=== PATIENT | male | born 1975 | race African-American/Black ===

== ENCOUNTER 2017-11-08 17:43 | Inpatient (IN) | payer MEDICAID, SELFPAY ==
[2017-11-08 18:33] LABS: #Eosinphils 0.1 thou/uL (0.0-0.7); #Lymphocytes 2.4 thou/uL (1.20-3.40); #Monocytes 0.5 thou/uL (0.11-0.59); #Neutrophils 3.7 thou/uL (1.40-6.50); %Basophils 0.6 % (0.0-1.0); %Eosinophils 1.6 % (0.0-10.0); %Lymphocytes 35.8 % (21.0-51.0); %Monocytes 7.4 % (0.0-10.0); Hematocrit 42.6 % (42.0-52.0); Mean Platelet Volume 6.2 fL (7.4-10.4); Red Blood Cell (RBC) Count 4.62 mill/uL (4.70-6.10); White Blood Cell (WBC) Count 6.8 thou/uL (4.8-10.8)
[2017-11-08 18:57] LABS: ALT (SGPT) 11 U/L (8-55); AST (SGOT) 10 U/L (5-34); Alkaline Phosphatase 77 U/L (40-150); Anion Gap 12 mmol/L (10-20); BUN (Urea Nitrogen) 10 mg/dL (8.9-20.6); Bilirubin, Total 0.2 mg/dL (0.2-1.2); Calc. Creatinine Clearance 0 mL/min (70-130); Calcium 9.2 mg/dL (7.8-10.44); Carbon Dioxide 26 mmol/L (22-29); Chloride 100 mmol/L (98-107); Estimated GFR-MDRD 90; Protein, Total 8.3 g/dL (6.0-8.3)
[2017-11-08] MEDS ORDERED: Clindamycin/D5W 600 mg/50 ml Premix Bag ONE (19:55)
--- NOTE | 2017-11-08 20:14 | RAD ---
THREE VIEWS RIGHT FOOT: History: Infection, right great toe. FINDINGS: AP, lateral and oblique views right foot obtained. Comparison: 03-13-16 FINDINGS: There has been interval amputation of the second and third digits. There is now an area of soft tissu e swelling and gas at the PIP joint of the first digit right foot. There is subluxation of the distal and proximal phalanges of the first digit medially. There is extensive erosion and destructive wood es in the distal aspect of the first right metatarsal as well as the proximal portions of the proxima l phalanx first digit right foot. IMPRESSION: 1. Destructive and erosive changes compatible with osteomyelitis of the mid and distal first metatars al right foot. POS: SE[facility]
[2017-11-08 21:13] LABS: Lactic Acid - Sepsis 1.7 mmol/L (0.5-2.2)
[2017-11-08] MEDS ORDERED: HYDROcodone/Acetaminophen 7.5/325 mg Tablet ONE (21:13)
[2017-11-08] MEDS ORDERED: Piperacillin/Tazobactam 3.375 GM in Sodium Chloride 0.9% 100 ML IVPB SCH (21:30)
[2017-11-08] MEDS ORDERED: Morphine 4 MG/ML VIAL ONE (22:48)
[2017-11-08] MEDS ORDERED: Ondansetron ODT 4 MG TAB SL PRN (23:34)
[2017-11-08] MEDS ORDERED: Acetaminophen 325 MG TAB PO PRN (23:34)
[2017-11-09] MEDS: Lactated Ringer's 1,000 ML IV SCH ×2 (00:04→08:54)
[2017-11-09 00:29] VITALS: BMI 35.6
--- NOTE | 2017-11-09 00:34 | PDOC.EVN ---
Event Note - Event Note Event Note: 208991 H&P Dictated 1. Rt foot osteomyelitis 2. DM type 2 3. htn 4. hpl plan: see orders
[2017-11-09] MEDS ORDERED: HYDROcodone/Acetaminophen 5/325 mg Tablet PO PRN (01:09)
[2017-11-09] MEDS: Morphine 5 mg/5 ml in 0.9% NaCl/PF SYRINGE SLOW IVP PRN ×4 (01:31→18:17)
[2017-11-09] MEDS: Sodium Chloride 0.9% 1,000 ML IV SCH ×2 (01:34→13:57)
[2017-11-09] MEDS: Vancomycin HCl 1.5 GM in Sodium Chloride 0.9% 250 ML 300 ML IVPB SCH ×2 (01:46→13:57)
[2017-11-09 06:11] LABS: #Eosinphils 0.1 thou/uL (0.0-0.7); #Lymphocytes 2.6 thou/uL (1.20-3.40); #Monocytes 0.6 thou/uL (0.11-0.59); #Neutrophils 2.5 thou/uL (1.40-6.50); %Basophils 0.6 % (0.0-1.0); %Eosinophils 2.4 % (0.0-10.0); %Lymphocytes 43.9 % (21.0-51.0); %Monocytes 10.8 % (0.0-10.0); Hematocrit 37.1 % (42.0-52.0); Mean Platelet Volume 6.3 fL (7.4-10.4); Red Blood Cell (RBC) Count 4.01 mill/uL (4.70-6.10); White Blood Cell (WBC) Count 5.9 thou/uL (4.8-10.8)
[2017-11-09 06:22] LABS: Anion Gap 9 mmol/L (10-20); BUN (Urea Nitrogen) 9 mg/dL (8.9-20.6); Calc. Creatinine Clearance 194 mL/min (70-130); Calcium 8.5 mg/dL (7.8-10.44); Carbon Dioxide 28 mmol/L (22-29); Chloride 103 mmol/L (98-107); Estimated GFR-MDRD Greater than 90
[2017-11-09] MEDS: Ondansetron HCl/PF 4 MG/2 ML Vial IVP PRN (06:50)
--- NOTE | 2017-11-09 07:47 | HP ---
DATE OF ADMISSION: 11/08/2017 CHIEF COMPLAINT: Right foot swelling. HISTORY OF PRESENT ILLNESS: Patient is 42-year-old male with a past medical history of diabetes michael itus type 2, hypertension, hyperlipidemia, peripheral vascular disease, now came to the ER complainin g of right foot swelling. The patient said he started having right foot swelling and initially start ed having bunion on the right foot. Later on the bunion ruptured and that started having right foot wound and having painless drainage also. Patient started having right foot swelling and pain for the past few weeks. Today, the pain got worse. Pain is constant, sharp to burning kind of pain 10/10, worsens with movement, complains of right lower extremity swelling intermittent, then swelling gets w orse on lying down. Denies any chest pain, denies any palpations. Denies any cough, denies any sput um production, denies any fever, denies any chills, denies any nausea, denies any vomiting, denies an y diarrhea. PAST MEDICAL HISTORY: As per HPI. PAST SURGICAL HISTORY: Bilateral foot surgery. SOCIAL HISTORY: Denies smoking, denies alcohol, denies any illicit drugs. ALLERGIES: Reviewed. MEDICATIONS: Reviewed. FAMILY HISTORY: Denies any heart problems. REVIEW OF SYSTEMS: Constitutional: Denies any fever, denies any chills. Eyes: Denies any vision p roblems. Ears: Denies any hearing loss. Neck: Denies any neck pain. Cardiovascular system: Lopez es any chest pain. Denies any palpitations. Respiratory system: Denies any cough. Denies any sput um production. Gastrointestinal: Denies nausea, vomiting. Musculoskeletal: Positive for right ruby t swelling, positive for right foot drainage seen. Cranial nerve system: Denies syncope, denies lig htheadedness. Psychiatric: Denies depression or anxiety. Integument: Denies any rash. All other review of systems are reviewed and are negative. PHYSICAL EXAMINATION: CONSTITUTIONAL/VITAL SIGNS: At the time of H&P performed, temperature is 98.7, heart rate 83, respir atory rate 18, pulse ox 96%, blood pressure is 156/83. GENERAL: This patient appears comfortable. HEENT: Pupils are equal, round, and reactive. Anterior nares patent. Nose normal. Ears normal. T eeth intact. Tongue is moist. NECK: Supple, no JVD. CARDIOVASCULAR: S1, S2 present. Regular rate and rhythm. No murmurs, no rubs, no gallops. RESPIRATORY SYSTEM: No wheezing, no rhonchi. Breath sounds present bilaterally. GASTROINTESTINAL: Abdomen is soft, nontender, no guarding, no organomegaly, no masses felt. MUSCULOSKELETAL: Right lower extremity, positive for swelling present. Right foot positive for ulce r present. Right foot positive for drainage seen. PSYCHIATRIC: Mood is appropriate at this time. CRANIAL NERVES SYSTEM: Awake, follows commands. Strength intact, sensory intact. INTEGUMENTARY: Positive for right foot ulcer. LABORATORY DATA: At the time of H&P performed white count 6.8, hemoglobin 13.8, platelet count is 47 4. BMP shows sodium 134, potassium 4.2, chloride 100, CO2 of 26, BUN of 10, creatinine 1.09, glucose 299. CRP 4.71. Foot x-ray positive for destructive and erosive changes with osteomyelitis of the m id and distal first metatarsal right foot. ASSESSMENT AND PLAN: The patient is 42-year-old male, 1. Right foot osteomyelitis. Plan to start patient on broad spectrum antibiotics. Plan to keep pat ient n.p.o. Plan to consult Ortho to evaluate the patient. Plan to consult ID to evaluate the patie nt and we will monitor the patient closely. 2. Hypertension. Monitor blood pressure, continue home blood pressure treatments. 3. Diabetes, type 2. Monitor blood sugars. We will do insulin sliding scale. 4. Hypercholesterolemia. Continue home medication. 5. Pain, p.r.n. pain meds. Case was discussed in detail with the patient.
[2017-11-09] MEDS: Cefepime 2 GM, Syringe 2.5 ML in Sterile Water 10 ML SLOW IVP SCH ×2 (08:55→21:05)
[2017-11-09] MEDS: Famotidine 20 MG TAB PO SCH ×2 (08:55→21:07)
[2017-11-09] MEDS: Heparin 5,000 UNITS/ML VIAL SC SCH ×3 (09:00→21:05)
[2017-11-09] MEDS ORDERED: Cefepime 2 GM in Sodium Chloride 0.9% 100 ML IVPB SCH (09:00)
--- NOTE | 2017-11-09 09:14 | HP ---
HISTORY OF PRESENT ILLNESS: A 42-year-old black male well known to me. He has had previous amputati ons of his left and right foot. He is a heavy equipment operator apprentice. He stated he injured his right fo ot, developed neuropathic ulcer with metatarsophalangeal joint, plantar ulceration. This has progres sed to drainage and swelling. He presents to the emergency room, x-rays reveal osteomyelitis changes in the metatarsal head. He was admitted by Hospitalist Service. ALLERGIES: CODEINE. TOBACCO: None. ALCOHOL: None. MEDICATIONS: Crestor 10 mg a day, amlodipine 5 mg a day, Amaryl 4 mg t.i.d., metformin 500 mg b.i.d. , lisinopril 20/12.5 daily. PAST SURGICAL HISTORY: Last year amputations of the left and right foot, amputations of right second and third toes and metatarsals, right foot. PAST MEDICAL HISTORY: Non-insulin dependent diabetes mellitus and hypertension. REVIEW OF SYSTEMS: Ten point noncontributory. PHYSICAL EXAMINATION: VITAL SIGNS: 6 foot 1 inch, 270 pounds, 35 BMI, 98.1, 77, 147/77. HEENT: Unremarkable. LUNGS: Clear to auscultation. CARDIAC: Regular rate and rhythm without murmur or gallop. ABDOMEN: Soft, obese, nontender. EXTREMITIES: Palpable femoral, popliteal, dorsalis pedis, posterior tibial pulses bilaterally. Prev ious amputations well healed of the right second and third toes and metatarsals, right great toe with generalized edema and swelling. Plantar ulceration beneath the plantar metatarsophalangeal joint of the great toe, right. There is purulent discharge. ASSESSMENT AND PLAN: 1. Diabetic foot infection, right foot. We will plan amputation of right great toe and metatarsal. Wound left open for healing by secondary intention with wound VAC application. Patient understands the risks and benefits and consents. 2. Diabetes mellitus. 3. Hypertension. 4. Palpable pulses. No evidence of peripheral arterial disease. 5. Morbid obesity with metabolic syndrome with body mass index of 35.
[2017-11-09] MEDS ORDERED: Ondansetron HCl/PF 4 MG/2 ML Vial ONE ×2 (13:54→16:34)
[2017-11-09] MEDS ORDERED: Fentanyl 100 MCG/2 ML VIAL ONE (15:02)
--- NOTE | 2017-11-09 15:14 | PDOC.EVN ---
Event Note - Event Note Event Note: Chart reviewed. Pt seen. Plan for surgery noted, will follow.
[2017-11-09] MEDS ORDERED: Morphine Sulfate 2 MG/ML SYRINGE SLOW IVP PRN (16:10)
[2017-11-09] MEDS ORDERED: Promethazine HCl 25 MG/ML VIAL SLOW IVP PRN (16:10)
[2017-11-09] MEDS ORDERED: Ketorolac Tromethamine 30 MG/ML VIAL IVP PRN (16:10)
[2017-11-09] MEDS ORDERED: Ondansetron HCl/PF 4 MG/2 ML Vial IVP PRN (16:10)
[2017-11-09] MEDS ORDERED: Meperidine HCl/PF 25 MG/ML VIAL SLOW IVP PRN (16:10)
[2017-11-09] MEDS ORDERED: Promethazine HCl 25 MG/ML VIAL IM PRN (16:10)
[2017-11-09] MEDS ORDERED: Propofol 200 MG/20 ML VIAL ONE (16:34)
[2017-11-09] MEDS ORDERED: Dexamethasone 20 MG/5 ML VIAL ONE (16:34)
[2017-11-09] MEDS ORDERED: Lidocaine 1% PF 5 ML VIAL ONE (16:34)
[2017-11-09] MEDS ORDERED: Succinylcholine Chloride 20 MG/ML 10 ml SYRINGE FS ONE (16:34)
[2017-11-09] MEDS ORDERED: traMADol HCl 50 MG TAB PO PRN (16:53)
[2017-11-09] MEDS ORDERED: hydrALAZINE 20 MG/ML VIAL SLOW IVP PRN (17:19)
[2017-11-09] MEDS ORDERED: HumaLOG 300 UNITS/3 ML VIAL SC PRN (17:20)
[2017-11-09] MEDS ORDERED: Dextrose 50% Abboject 50 ML SYRINGE IVP PRN (17:20)
[2017-11-09] MEDS ORDERED: Dextrose 5% in Water 1,000 ML IV PRN (17:20)
[2017-11-09] MEDS: HumaLOG 300 UNITS/3 ML VIAL SC PRN (17:58)
--- NOTE | 2017-11-09 19:20 | OP ---
DATE OF PROCEDURE: 11/09/2017 PREOPERATIVE DIAGNOSES: Diabetic neuropathic ulcer of the right foot with osteomyelitis and diabetic infection, right great toe. PROCEDURES: Amputation of the right great toe and metatarsal wound left open by secondary intention, wound VAC to be applied tomorrow. SURGEON: Dr. Addy Caban ANESTHESIA: General. NOTE: Good blood supply and no evidence of PAD, pulsatile bleeding in digital vessels. PROCEDURE IN DETAIL: The patient was taken to the operating room where under general anesthesia, the right lower extremity was prepared with chloraprep, draped in routine fashion. Incision was made fo r racquet incision excising the right great toe and metatarsal underlying neuropathic plantar ulcerat ion. Skin was spared as able. Incision carried down through the skin and subcutaneous tissue down t o the metatarsal, transected with a bone cutter, resected proximally with rongeurs. Hemostasis gaine d with cautery and interrupted [id number] sutures of 4-0 Vicryl. Good hemostasis noted. Connec tive tissue debrided sharply. Surgicel and sterile dressings applied. The patient tolerated the pro cedure well.
[2017-11-10] MEDS: Vancomycin HCl 1.5 GM in Sodium Chloride 0.9% 250 ML 300 ML IVPB SCH ×2 (02:24→14:00)
[2017-11-10] MEDS: Morphine 5 mg/5 ml in 0.9% NaCl/PF SYRINGE SLOW IVP PRN ×2 (02:24→12:10)
[2017-11-10] MEDS: HumaLOG 300 UNITS/3 ML VIAL SC PRN ×2 (06:26→11:40)
[2017-11-10] MEDS ORDERED: Non-Formulary Item 1 EACH (Lisinopril/Hydrochlorothiazide [Lisinopril-Hctz 20-12.5 Mg Tab PO SCH (09:00)
[2017-11-10] MEDS: Famotidine 20 MG TAB PO SCH ×2 (09:04→21:20)
[2017-11-10] MEDS: Heparin 5,000 UNITS/ML VIAL SC SCH ×3 (09:05→21:21)
[2017-11-10] MEDS: Rosuvastatin 10 MG TAB PO SCH (09:39)
[2017-11-10] MEDS: Cefepime 2 GM, Syringe 2.5 ML in Sterile Water 10 ML SLOW IVP SCH ×2 (09:39→21:20)
[2017-11-10] MEDS: Amlodipine 5 MG TAB PO SCH (09:40)
[2017-11-10] MEDS: Lisinopril/Hydrochlorothiazide 20 mg/12.5 mg Tablet PO SCH (09:40)
[2017-11-10] MEDS: Glimepiride 4 MG TAB PO SCH ×3 (09:41→21:20)
[2017-11-10] MEDS: traMADol HCl 50 MG TAB PO PRN ×2 (09:49→19:24)
[2017-11-10] MEDS ORDERED: Cepastat Lozenges 1 LOZ PO SCH (10:00)
--- NOTE | 2017-11-10 13:30 | PDOC.PN ---
- Subjective Encounter Start Date: 11/10/17 Encounter Start Time: 08:20 Pt seen for followup re: osteomyelitis of foot. Denies chest pain, shortness of breath, fevers or chills. Pain at surgical site. - Objective MAR Reviewed: Yes Vital Signs & Weight: Vital Signs (12 hours) Temp Pulse Resp BP BP Pulse Ox 11/10/17 09:40 75 162/93 H 11/10/17 04:41 98.7 F 75 16 122/77 93 L Weight Admit Weight 270 lb Weight 270 lb I&O: 11/09/17 11/10/17 11/11/17 06:59 06:59 06:59 Intake Total 1015 1950 Output Total 600 2000 Balance 415 -50 Result Diagrams: 11/09/17 05:27 11/09/17 05:27 Additional Labs: Accuchecks 11/10/17 11/10/17 11/09/17 10:37 05:54 20:37 POC Glucose 213 H 300 H 288 H 11/09/17 17:16 POC Glucose 252 H Phys Exam - Physical Examination Morbid obesity HEENT: PERRLA, moist MMs, sclera anicteric, oral pharynx no lesions Neck: no nodes, no JVD, supple, full ROM Respiratory: no wheezing, no rales, no rhonchi, clear to auscultation bilateral Cardiovascular: RRR, no rub Gastrointestinal: soft, non-tender, positive bowel sounds distention Musculoskeletal: pulses present s/p R foot surgery Neurological: moves all 4 limbs Lymphatic: no nodes Psychiatric: normal affect, A&O x 3 Skin: no rash, normal turgor, cap refill <2 seconds Dx/Plan (1) Osteomyelitis of toe of right foot Code(s): M86.9 - OSTEOMYELITIS, UNSPECIFIED Status: Acute Comment: s/p amputation of right 2nd and 3rd toe (2) Asthma Code(s): J45.909 - UNSPECIFIED ASTHMA, UNCOMPLICATED Status: Chronic (3) Diabetes mellitus Code(s): E11.9 - TYPE 2 DIABETES MELLITUS WITHOUT COMPLICATIONS Status: Chronic (4) Dyslipidemia Code(s): E78.5 - HYPERLIPIDEMIA, UNSPECIFIED Status: Chronic (5) HTN (hypertension) Code(s): I10 - ESSENTIAL (PRIMARY) HYPERTENSION Status: Chronic - Plan continue antibiotics, PT/OT, out of bed/ambulate * . Cepastat lozenges for fore throat. Continue IV antibiotics as below, await cultures. Continue accuchecks, insulin sliding scale. Monitor vital signs, titrate antihypertensives as needed. Review of Systems - Review of Systems Constitutional: negative: Fever, Chills, Sweats, Weakness, Malaise Respiratory: negative: Cough, Dry, Shortness of Breath, Hemoptysis, SOB with Excertion, Pleuritic Pain, Sputum, Wheezing Cardiovascular: negative: Chest Pain, Palpitations, Orthopnea, Paroxysmal Noc. Dyspnea, Edema, Light Headedness Gastrointestinal: negative: Nausea, Vomiting, Abdominal Pain, Diarrhea, Constipation, Melena, Hematochezia Musculoskeletal: Foot Pain - Medications/Allergies Allergies/Adverse Reactions: Allergies Allergy/AdvReac Type Severity Reaction Status Date / Time codeine phosphate AdvReac Mild Verified 07/06/16 06:32 [From Tylenol-Codeine #3] Medications: Current Medications Acetaminophen (Tylenol) 650 mg PO Q4H PRN PRN Reason: Mild Pain (1-3) Stop: 11/13/17 10:00 Hydrocodone Bitart/Acetaminophen ([place] 5/325) 1 tab PO Q4H PRN PRN Reason: Pain Last Admin: 11/10/17 06:25 Dose: 1 tab Amlodipine Besylate (Norvasc) 5 mg PO DAILY [facility] Last Admin: 11/10/17 09:40 Dose: 5 mg Dextrose/Water (Dextrose 50%) 25 gm IVP PRN PRN PRN Reason: HYPOGLYCEMIA PROTOCOL Famotidine (Pepcid) 20 mg PO BID [facility] Last Admin: 11/10/17 09:04 Dose: 20 mg Glimepiride (Amaryl) 4 mg PO TID [facility] Last Admin: 11/10/17 09:41 Dose: 4 mg Glucagon (Glucagon) 1 mg IM PRN PRN PRN Reason: HYPOGLYCEMIA PROTOCOL Lisinopril/HCTZ (Prinizide 20-12.5) 1 tab PO DAILY [facility] Last Admin: 11/10/17 09:40 Dose: 1 tab Heparin Sodium (Porcine) (Heparin) 5,000 units SC TID [facility] Last Admin: 11/10/17 09:05 Dose: 5,000 units Hydralazine HCl (Apresoline) 10 mg SLOW IVP Q6H PRN PRN Reason: SBP Greater Than 180 Vancomycin HCl 1.5 gm/ Sodium (Chloride) 300 mls @ 200 mls/hr IVPB 0200,1400 [facility] Last Admin: 11/10/17 02:24 Dose: 300 mls Cefepime HCl 2 gm/ Syringe 2.5 (ml/ Sterile Water) 12.5 mls @ 150 mls/hr SLOW IVP Q12HR [facility] Last Admin: 11/10/17 09:39 Dose: 12.5 mls Dextrose/Water (D5w) 1,000 mls @ 0 mls/hr IV INF PRN; As Directed PRN Reason: HYPOGLYCEMIA PROTOCOL Insulin Human Lispro (Humalog) 0 units SC .MILD SLIDING SCALE PRN; Protocol PRN Reason: MILD SLIDING SCALE Last Admin: 11/10/17 11:40 Dose: 3 unit Insulin Human Lispro (Humalog) 0 units SC .BEDTIME SLIDING SC PRN; Protocol PRN Reason: BEDTIME SLIDING SCALE Metformin HCl (Glucophage Xr) 500 mg PO BID[facility] Morphine Sulfate/Sodium Chloride (Morphine 0.9% Nacl/Pf 5 Mg/5 M) 4 mg SLOW IVP Q4H PRN PRN Reason: Severe Pain (7-10) Last Admin: 11/10/17 12:10 Dose: 4 mg Ondansetron HCl (Zofran) 4 mg IVP Q6H PRN PRN Reason: Nausea/Vomiting Stop: 11/13/17 10:00 Last Admin: 11/09/17 06:50 Dose: 4 mg Ondansetron HCl (Zofran Odt) 4 mg SL Q6H PRN PRN Reason: Nausea/Vomiting Stop: 11/11/17 10:00 Pantoprazole Sodium (Protonix) 40 mg PO DAILY [facility] Last Admin: 11/10/17 09:39 Dose: 40 mg Rosuvastatin Calcium (Crestor) 10 mg PO DAILY [facility] Last Admin: 11/10/17 09:39 Dose: 10 mg Throat Lozenges (Cepastat Lozenges) 1 mora PO Q2H PRN PRN Reason: Sore Throat Tramadol HCl (Ultram) 50 mg PO Q6H PRN PRN Reason: Pain 5 Tramadol HCl (Ultram) 100 mg PO Q6H PRN PRN Reason: PAIN 6 Last Admin: 11/10/17 09:49 Dose: 100 mg
[2017-11-10] MEDS: Cepastat Lozenges 1 LOZ PO PRN ×2 (16:31→21:27)
[2017-11-10] MEDS: HYDROcodone/Acetaminophen 5/325 mg Tablet PO PRN ×2 (17:34→21:19)
[2017-11-10] MEDS: metFORMIN XR 500 MG TAB PO SCH (17:34)
--- NOTE | 2017-11-10 18:21 | PRG ---
DATE OF SERVICE: 11/10/2017 SUBJECTIVE: Lyle Vanegas is doing well today. He is status post amputation 11/09/2017 of his rig ht great toe and metatarsal. Wound VAC has been applied today. Overall, he is doing well. Physical therapy is working with him. His laboratories are not obtained today. Glucose is 213-288. Vicodin 5, inadequate pain control and he continues on vancomycin and Zosyn and cultures are pending. OBJECTIVE: LUNGS: Clear to auscultation. CARDIAC: Regular rate and rhythm without murmur or gallop. ABDOMEN: Soft and nontender. EXTREMITIES: Wound VAC, right foot. LABORATORY DATA: Cultures did reveal Streptococcus and Proteus. ASSESSMENT AND PLAN: Diabetic infection of right foot with osteomyelitis, status post surgery. The patient can be discharged home on penicillin, probably later this week, Wednesday home back. He has in the past traveled from [place] to [facility] for VAC. Physical therapy is working with him. From a surgical standpoint, I will see the wound on Wednesday and he most likely can be discharge d home on oral antibiotics at that time.
[2017-11-11] MEDS: Vancomycin HCl 1.5 GM in Sodium Chloride 0.9% 250 ML 300 ML IVPB SCH ×3 (02:20→16:38)
[2017-11-11] MEDS: metFORMIN XR 500 MG TAB PO SCH ×2 (08:47→16:36)
[2017-11-11] MEDS: Amlodipine 5 MG TAB PO SCH (08:48)
[2017-11-11] MEDS: Famotidine 20 MG TAB PO SCH ×2 (08:48→20:45)
[2017-11-11] MEDS: Heparin 5,000 UNITS/ML VIAL SC SCH ×3 (08:49→20:45)
[2017-11-11] MEDS: Rosuvastatin 10 MG TAB PO SCH (08:49)
[2017-11-11] MEDS: Lisinopril/Hydrochlorothiazide 20 mg/12.5 mg Tablet PO SCH (08:49)
[2017-11-11] MEDS: Glimepiride 4 MG TAB PO SCH ×3 (08:49→20:45)
[2017-11-11] MEDS: Ondansetron HCl/PF 4 MG/2 ML Vial IVP PRN (09:07)
[2017-11-11] MEDS: Cefepime 2 GM, Syringe 2.5 ML in Sterile Water 10 ML SLOW IVP SCH ×2 (09:07→20:42)
[2017-11-11] MEDS: traMADol HCl 50 MG TAB PO PRN (09:46)
--- NOTE | 2017-11-11 10:47 | PDOC.PN ---
- Subjective Encounter Start Date: 11/11/17 Encounter Start Time: 08:00 Pt seen for followup re: nausea. Denies chest pain or shortness of breath. Had nausea after eating. - Objective MAR Reviewed: Yes Vital Signs & Weight: Vital Signs (12 hours) Temp Pulse Resp BP Pulse Ox 11/11/17 09:23 98.1 F 66 16 161/102 H 95 11/11/17 08:48 69 11/11/17 04:00 97.9 F 65 18 143/93 H 96 11/11/17 00:00 97.8 F 72 19 148/88 H 95 Weight Admit Weight 270 lb Weight 270 lb I&O: 11/10/17 11/11/17 11/12/17 06:59 06:59 06:59 Intake Total 1949 2039 Output Total 1999 Balance -50 2039 Result Diagrams: 11/09/17 05:27 11/09/17 05:27 Additional Labs: Accuchecks 11/11/17 11/10/17 11/10/17 05:57 21:08 15:26 POC Glucose 107 136 H 100 11/10/17 10:37 POC Glucose 213 H Phys Exam - Physical Examination Obese HEENT: moist MMs Neck: supple Respiratory: clear to auscultation bilateral Cardiovascular: RRR Gastrointestinal: soft Dressing on R foot Neurological: moves all 4 limbs Psychiatric: normal affect Skin: no rash Dx/Plan (1) Nausea Code(s): R11.0 - NAUSEA Status: Acute (2) Osteomyelitis of toe of right foot Code(s): M86.9 - OSTEOMYELITIS, UNSPECIFIED Status: Acute Comment: s/p amputation of right 2nd and 3rd toe (3) Asthma Code(s): J45.909 - UNSPECIFIED ASTHMA, UNCOMPLICATED Status: Chronic (4) Diabetes mellitus Code(s): E11.9 - TYPE 2 DIABETES MELLITUS WITHOUT COMPLICATIONS Status: Chronic (5) Dyslipidemia Code(s): E78.5 - HYPERLIPIDEMIA, UNSPECIFIED Status: Chronic (6) HTN (hypertension) Code(s): I10 - ESSENTIAL (PRIMARY) HYPERTENSION Status: Chronic - Plan continue antibiotics, PT/OT, out of bed/ambulate * .Continue PRN Zofran. * Add PRN Phenergan Start clear fluid diet, advance as tolerated. Continue accuchecks, insulin sliding scale. Ambulate pt. Likely home tomorrow with oral antibiotics. Review of Systems - Review of Systems Respiratory: negative: Cough, Dry, Shortness of Breath, Hemoptysis, SOB with Excertion, Pleuritic Pain, Sputum, Wheezing Gastrointestinal: Nausea - Medications/Allergies Allergies/Adverse Reactions: Allergies Allergy/AdvReac Type Severity Reaction Status Date / Time codeine phosphate AdvReac Mild Verified 07/06/16 06:32 [From Tylenol-Codeine #3] Medications: Current Medications Acetaminophen (Tylenol) 650 mg PO Q4H PRN PRN Reason: Mild Pain (1-3) Stop: 11/13/17 10:00 Hydrocodone Bitart/Acetaminophen ([place] 5/325) 2 tab PO Q4H PRN PRN Reason: Pain Last Admin: 11/10/17 21:19 Dose: 2 tab Amlodipine Besylate (Norvasc) 5 mg PO DAILY [facility] Last Admin: 11/11/17 08:48 Dose: 5 mg Dextrose/Water (Dextrose 50%) 25 gm IVP PRN PRN PRN Reason: HYPOGLYCEMIA PROTOCOL Famotidine (Pepcid) 20 mg PO BID [facility] Last Admin: 11/11/17 08:48 Dose: 20 mg Glimepiride (Amaryl) 4 mg PO TID [facility] Last Admin: 11/11/17 08:49 Dose: 4 mg Glucagon (Glucagon) 1 mg IM PRN PRN PRN Reason: HYPOGLYCEMIA PROTOCOL Lisinopril/HCTZ (Prinizide 20-12.5) 1 tab PO DAILY [facility] Last Admin: 11/11/17 08:49 Dose: 1 tab Heparin Sodium (Porcine) (Heparin) 5,000 units SC TID [facility] Last Admin: 11/11/17 08:49 Dose: 5,000 units Hydralazine HCl (Apresoline) 10 mg SLOW IVP Q6H PRN PRN Reason: SBP Greater Than 180 Cefepime HCl 2 gm/ Syringe 2.5 (ml/ Sterile Water) 12.5 mls @ 150 mls/hr SLOW IVP Q12HR [facility] Last Admin: 11/11/17 09:07 Dose: 12.5 mls Dextrose/Water (D5w) 1,000 mls @ 0 mls/hr IV INF PRN; As Directed PRN Reason: HYPOGLYCEMIA PROTOCOL Vancomycin HCl 1.5 gm/ Sodium (Chloride) 300 mls @ 200 mls/hr IVPB 0200,1000, 1800 [facility] Last Admin: 11/11/17 08:50 Dose: 300 mls Insulin Human Lispro (Humalog) 0 units SC .MILD SLIDING SCALE PRN; Protocol PRN Reason: MILD SLIDING SCALE Last Admin: 11/10/17 11:40 Dose: 3 unit Insulin Human Lispro (Humalog) 0 units SC .BEDTIME SLIDING SC PRN; Protocol PRN Reason: BEDTIME SLIDING SCALE Metformin HCl (Glucophage Xr) 500 mg PO BID-[facility] Last Admin: 11/11/17 08:47 Dose: 500 mg Ondansetron HCl (Zofran) 4 mg IVP Q6H PRN PRN Reason: Nausea/Vomiting Stop: 11/13/17 10:00 Last Admin: 11/11/17 09:07 Dose: 4 mg Pantoprazole Sodium (Protonix) 40 mg PO DAILY [facility] Last Admin: 11/11/17 08:49 Dose: 40 mg Rosuvastatin Calcium (Crestor) 10 mg PO DAILY [facility] Last Admin: 11/11/17 08:49 Dose: 10 mg Throat Lozenges (Cepastat Lozenges) 1 mora PO Q2H PRN PRN Reason: Sore Throat Last Admin: 11/10/17 21:27 Dose: 1 mora Tramadol HCl (Ultram) 50 mg PO Q6H PRN PRN Reason: Pain 5 Tramadol HCl (Ultram) 100 mg PO Q6H PRN PRN Reason: PAIN 6 Last Admin: 11/11/17 09:46 Dose: 100 mg
[2017-11-11] MEDS ORDERED: Promethazine HCl 25 MG/ML VIAL IM/IV PRN (10:56)
--- NOTE | 2017-11-11 13:31 | PRG ---
DATE OF SERVICE: 11/11/2017 SUBJECTIVE: [facility] Vaneg[facility] is doing well today[facility] The patient's wound look good previously. He is complaining of some pain and is well contr olled with oral analgesics. I have encouraged him to keep his heels off the bed to avoid heel decubi tus. From a surgical standpoint, we will view his wound tomorrow and we will teach family normal samira ine wet to dry dressing. He can visit outpatient wound care 2-3 times a week to check his wound and family, on the other days, we will wash the open wound with soap and water in the shower or bath and apply normal saline wet to dry dressings. Wound care will instruct him on normal saline wet to dry dr pham tomorrow and he will continue this regimen until the outpatient wound VAC is acquired. I chana hoover need to see him in my office in 3-4 weeks. He will be sent home with penicillin derivative for 2 w eeks. Analgesics as required.
[2017-11-11] MEDS: Cepastat Lozenges 1 LOZ PO PRN (14:25)
[2017-11-11] MEDS: HYDROcodone/Acetaminophen 5/325 mg Tablet PO PRN ×2 (16:39→20:48)
[2017-11-12 01:21] LABS: Vancomycin, Trough 15.1 ug/mL
[2017-11-12] MEDS: Vancomycin HCl 1.5 GM in Sodium Chloride 0.9% 250 ML 300 ML IVPB SCH (02:06)
[2017-11-12] MEDS: HYDROcodone/Acetaminophen 5/325 mg Tablet PO PRN (06:27)
[2017-11-12] MEDS: Glimepiride 4 MG TAB PO SCH ×2 (08:28→16:16)
[2017-11-12] MEDS: Famotidine 20 MG TAB PO SCH (08:28)
[2017-11-12] MEDS: Amlodipine 5 MG TAB PO SCH (08:28)
[2017-11-12] MEDS: Rosuvastatin 10 MG TAB PO SCH (08:28)
[2017-11-12] MEDS: Lisinopril/Hydrochlorothiazide 20 mg/12.5 mg Tablet PO SCH (08:28)
[2017-11-12] MEDS: metFORMIN XR 500 MG TAB PO SCH ×2 (08:28→16:16)
[2017-11-12] MEDS: Heparin 5,000 UNITS/ML VIAL SC SCH ×2 (08:29→16:16)
[2017-11-12] MEDS: traMADol HCl 50 MG TAB PO PRN ×2 (08:45→17:45)
[2017-11-12] MEDS: Ondansetron HCl/PF 4 MG/2 ML Vial IVP PRN (12:09)
[2017-11-12] MEDS ORDERED: traMADol HCl 50 MG TAB PO PRN (16:01)
[2017-11-12 16:22] VITALS: BP 156/97; TEMP 97.6
--- NOTE | 2017-11-12 18:11 | DIS ---
DATE OF ADMISSION: 11/08/2017 DATE OF DISCHARGE: 11/12/2017 PRIMARY CARE PROVIDER: None. DISCHARGE DIAGNOSES: 1. Osteomyelitis of the mid and distal first metatarsal of the right foot. 2. Amputation of the right great toe and metatarsal wound left open by secondary intention on 2016. CONDITION OF PATIENT ON THE DAY OF DISCHARGE: Stable. I assessed Mr. Vanegas on the day of discharge. He denies any chest pain or shortness of breath. Vital signs are stable. S1 and S2 are heard, reg ular. Lungs are clear to auscultation bilaterally. CONSULTATIONS DURING THIS HOSPITALIZATION: Surgery, Dr. Addy Caban. DISCHARGE MEDICATIONS: Amlodipine 5 mg daily, ampicillin 500 mg 4 times a day for 14 days, Amaryl 4 mg 3 times a day, lisinopril/hydrochlorothiazide 20/12.5 mg daily, metformin 500 mg 2 times a day, pa ntoprazole 40 mg daily, Crestor 10 mg daily, and tramadol 50 mg every 8 hours as needed. HOSPITAL COURSE: Mr. Vanegas is a pleasant 42-year-old gentleman who was admitted to [facility] on 11/08/2017 for right foot swelling. X-rays of the foot at the time of admission showed destructive and erosive changes compatible with osteomyelitis of the mid and distal first meta tarsal right foot. He was seen by Surgical Service and underwent surgical procedure as described abo ve. He continued to improve clinically. Cultures of the right foot grew Streptococcus agalactiae an d Proteus mirabilis. Proteus was pansensitive. Further testing for Streptococcus was not performed in terms of susceptibilities because no penicillin, cephalosporins or vancomycin with assistance has been detected in this group. He was also seen by Wound Care Service. He will need charitable VAC. He can visit outpatient wound care 2-3 times a week to check his wound. He will be seen by Surgical Service in 3-4 weeks. Many thanks for allowing me to participate in your patient's care. Please feel free to contact me wi th any questions or concerns. DISCHARGE DESTINATION: Home. TOTAL AMOUNT OF TIME SPENT COORDINATING THIS DISCHARGE: 33 minutes.
== END 2017-11-12 18:04 | disposition home or self-care (01) | DRG 617 ==
LOC: ERS 17:43 → SURG A 21:38
PROVIDERS: ADMIT Internal Medicine; ATTEND Internal Medicine
PROC: 0Y6P0Z0 Detachment at Right 1st Toe, Complete, Open Approach (ICD-10-PCS; principal; 2017-11-09)
DX: E11.69 Type 2 diabetes mellitus with other specified complication (principal); M86.9 Osteomyelitis, unspecified; E11.51 Type 2 diabetes mellitus with diabetic peripheral angiopathy without gangrene; I10 Essential (primary) hypertension; Z79.84 Long term (current) use of oral hypoglycemic drugs; Z89.422 Acquired absence of other left toe(s); Z89.421 Acquired absence of other right toe(s); E66.01 Morbid (severe) obesity due to excess calories; Z68.35 Body mass index [BMI] 35.0-35.9, adult; E78.00 Pure hypercholesterolemia, unspecified; E11.621 Type 2 diabetes mellitus with foot ulcer; L97.519 Non-pressure chronic ulcer of other part of right foot with unspecified severity; B95.5 Unspecified streptococcus as the cause of diseases classified elsewhere; B96.4 Proteus (mirabilis) (morganii) as the cause of diseases classified elsewhere; J45.909 Unspecified asthma, uncomplicated; F41.9 Anxiety disorder, unspecified; Z87.891 Personal history of nicotine dependence
CPT/HCPCS: 36415; 36416; 80048; 80053; 80202; 83605; 85025; 85652; 86140; 87040; 87070; 87076; 87077; 87186; 87205; 88305; 96361; 96374; 96375; A4216; G8978-GP-CI; G8979-GP-CI; G8980-GP-CI; G8987-GO-CJ; G8988-GO-CJ; G8989-GO-CJ; J0692; J1100; J1644; J2001; J2270; J2405; J2543; J2704; J3010; J3370; J3490; J7050; Q0162

== ENCOUNTER 2017-11-15 11:26 | Outpatient (CLI) | payer SELFPAY ==
[2017-11-15] MEDS ORDERED: Lidocaine 4% Topical Sol 50 ML BOT ONE (17:03)
[2017-11-15] MEDS ORDERED: Sodium Chloride 0.9% 15 ML NEB ONE (17:03)
== END 2017-11-15 11:27 | disposition home or self-care (01) ==
LOC: WCC 11:26
PROVIDERS: ATTEND Family Medicine
DX: T81.89XD Other complications of procedures, not elsewhere classified, subsequent encounter (principal); Z89.411 Acquired absence of right great toe
CPT/HCPCS: 97602; A4218; J2001

== ENCOUNTER 2017-11-18 09:34 | Outpatient (CLI) | payer OTHER, SELFPAY ==
--- NOTE | 2017-11-18 11:32 | PRG ---
DATE OF SERVICE: 11/18/2017 HISTORY: Mr. Lyle Vanegas is a very pleasant 42-year-old gentleman, previously seen in the [facility] who now presents with a wound of the right foot subsequent to amputation of the right great toe and metatarsal. The patient underwent the preceding procedure on 11/09/2017. At surgery, the w ound was left open to heal by secondary intention. The patient received negative pressure therapy du ring his hospital stay. Upon discharge, the patient was instructed to perform wet-to-dry dressing ch anges for his right foot wound. The patient is to resume negative pressure therapy once the wound VA C becomes available. The patient was discharged to home on ampicillin 500 mg p.o. q.i.d. PAST MEDICAL HISTORY: 1. Asthma. 2. Diabetes mellitus. 3. Gastroesophageal reflux disease. 4. Hypertension. 5. History of Meniere's. PAST SURGICAL HISTORY: Amputation of left great toe through proximal phalanx, amputation of right se cond and third toes and metatarsals. Amputation of right great toe and metatarsal as per HPI. MEDICATIONS: 1. Ampicillin. 2. Tramadol. 3. Lisinopril/HCTZ. 4. Metformin. 5. Crestor. 6. Glimepiride. 7. Pantoprazole. 8. Amlodipine. PHYSICAL EXAMINATION: VITAL SIGNS: Temperature 98.1, pulse 87, respirations 20, blood pressure 158/90. Accu-Chek 180. EXTREMITIES: A wound of the right foot subsequent to amputation of the right great toe and metatarsa l is present. The dimensions of the wound are approximately 3.4 x 7.3 cm. The wound is granulating. Necrotic and nonviable tissue present within the wound margins was debrided with an excisional full -thickness debridement with the use of a curette. No purulent drainage is associated with the wound. No erythema of the skin surrounding the wound is present. Maceration of the skin of the periwound is noted. The periwound is also stained green from serous drainage associated with the wound. A jamaal salis pedis pulse is easily palpable on the right. Edema of the right foot is also present on exam t leticia. ASSESSMENT AND PLAN: 1. Right foot wound subsequent to amputation of right great toe and metatarsal. Negative pressure t herapy will be initiated once the wound VAC becomes available. Until the wound VAC becomes available , the patient is to continue wet to dry dressing changes on a daily basis after cleansing and irrigat ion as per Dr. Caban. Tissue cultures were obtained today and Antibiotic therapy will be modified b ased upon the results of the tissue cultures. I will see Mr. Vanegas again in 3 weeks. 2. Asthma. 3. Diabetes mellitus. The patient's Accu-Chek in clinic today is 180. The patient has been reminde d that for optimal wound healing, his blood glucoses should remain below 150. 4. Gastroesophageal reflux disease. 5. Hypertension. 6. History of Meniere's.
[2017-11-18] MEDS ORDERED: Lidocaine 2% Jelly 5 ML TUBE ONE (21:25)
[2017-11-18] MEDS ORDERED: Sodium Chloride 0.9% 15 ML NEB ONE (21:25)
[2017-11-18] MEDS ORDERED: Lidocaine 4% Topical Sol 50 ML BOT ONE (21:25)
== END 2017-11-18 09:35 | disposition home or self-care (01) ==
LOC: WCC 09:34
PROVIDERS: ATTEND Family Medicine
DX: T81.89XD Other complications of procedures, not elsewhere classified, subsequent encounter (principal); E11.9 Type 2 diabetes mellitus without complications; J45.909 Unspecified asthma, uncomplicated; K21.9 Gastro-esophageal reflux disease without esophagitis; I10 Essential (primary) hypertension; Z86.69 Personal history of other diseases of the nervous system and sense organs
CPT/HCPCS: 87070; 87077; 87186; 87205; A4218; J2001

== ENCOUNTER 2017-11-19 17:10 | Emergency (ER) | payer SELFPAY ==
[2017-11-19 18:51] LABS: #Basophils 0.1 thou/uL (0.0-0.2); #Eosinphils 0.1 thou/uL (0.0-0.7); #Lymphocytes 2.6 thou/uL (1.20-3.40); #Monocytes 0.5 thou/uL (0.11-0.59); #Neutrophils 3.1 thou/uL (1.40-6.50); %Basophils 0.9 % (0.0-1.0); %Eosinophils 1.7 % (0.0-10.0); %Lymphocytes 40.4 % (21.0-51.0); %Monocytes 7.6 % (0.0-10.0); Hematocrit 42.7 % (42.0-52.0); Mean Platelet Volume 6.7 fL (7.4-10.4); Red Blood Cell (RBC) Count 4.61 mill/uL (4.70-6.10); White Blood Cell (WBC) Count 6.3 thou/uL (4.8-10.8)
[2017-11-19 19:08] LABS: Lactic Acid - Sepsis 1.7 mmol/L (0.5-2.2)
[2017-11-19 19:13] LABS: ALT (SGPT) 36 U/L (8-55); AST (SGOT) 12 U/L (5-34); Alkaline Phosphatase 77 U/L (40-150); Anion Gap 12 mmol/L (10-20); BUN (Urea Nitrogen) 14 mg/dL (8.9-20.6); Bilirubin, Total 0.2 mg/dL (0.2-1.2); Calc. Creatinine Clearance 0 mL/min (70-130); Calcium 9.8 mg/dL (7.8-10.44); Carbon Dioxide 27 mmol/L (22-29); Chloride 102 mmol/L (98-107); Estimated GFR-MDRD 78; Globulin 4.1 g/dL (2.4-3.5); Protein, Total 7.8 g/dL (6.0-8.3)
[2017-11-19] MEDS ORDERED: Morphine 4 MG/ML VIAL ONE (19:28)
--- NOTE | 2017-11-19 19:45 | ULT ---
RIGHT LOWER EXTREMITY VENOUS DUPLEX ULTRASOUND INCLUDING COLOR AND SPECTRAL DOPPLER IMAGIN11/19/17 HISTORY: 42-year-old male with history of right lower quadrant pain and edema. Exam performed from groin to ankle including visualized greater saphenous, common femoral, superficia l femoral, or profunda femoral, popliteal, trifurcation, and posterior tibial vein regions. There is phasic flow at all levels with normal compressibility and normal augmentation. Incidental right groin lymph node measuring 1.2 x 2.8 cm. IMPRESSION: No evidence for right lower extremity deep venous thrombosis. POS: [facility]
== END 2017-11-19 20:35 | disposition home or self-care (01) ==
LOC: ERS 17:10
DX: M96.89 Other intraoperative and postprocedural complications and disorders of the musculoskeletal system (principal); E78.5 Hyperlipidemia, unspecified; E11.9 Type 2 diabetes mellitus without complications; F41.9 Anxiety disorder, unspecified; I10 Essential (primary) hypertension; J45.909 Unspecified asthma, uncomplicated; Z89.411 Acquired absence of right great toe; Y83.5 Amputation of limb(s) as the cause of abnormal reaction of the patient, or of later complication, without mention of misadventure at the time of the procedure; Z79.84 Long term (current) use of oral hypoglycemic drugs; Z79.899 Other long term (current) drug therapy; Z87.891 Personal history of nicotine dependence
CPT/HCPCS: 36415; 80053; 83605; 85025; 87040; 96374; J2270

== ENCOUNTER 2017-11-23 08:26 | Outpatient (CLI) | payer OTHER, SELFPAY ==
[2017-11-23] MEDS ORDERED: Sodium Chloride 0.9% 15 ML NEB ONE (14:36)
[2017-11-23] MEDS ORDERED: Lidocaine 4% Topical Sol 50 ML BOT ONE (14:36)
== END 2017-11-23 08:27 | disposition home or self-care (01) ==
LOC: WCC 08:26
PROVIDERS: ATTEND Family Medicine
DX: T81.89XD Other complications of procedures, not elsewhere classified, subsequent encounter (principal); Z89.411 Acquired absence of right great toe
CPT/HCPCS: 36416; 97605; A4218; J2001

== ENCOUNTER 2017-11-25 08:18 | Outpatient (CLI) | payer OTHER, SELFPAY ==
[2017-11-25] MEDS ORDERED: Lidocaine 4% Topical Sol 50 ML BOT ONE (13:46)
[2017-11-25] MEDS ORDERED: Sodium Chloride 0.9% 15 ML NEB ONE (13:46)
== END 2017-11-25 08:19 | disposition home or self-care (01) ==
LOC: WCC 08:18
PROVIDERS: ATTEND Family Medicine
DX: T81.89XD Other complications of procedures, not elsewhere classified, subsequent encounter (principal); E11.9 Type 2 diabetes mellitus without complications
CPT/HCPCS: A4218; J2001

== ENCOUNTER 2017-11-30 08:22 | Outpatient (CLI) | payer OTHER | END 2017-11-30 08:23 | disposition home or self-care (01) | LOC: WCC 08:22 | PROVIDERS: ATTEND Family Medicine | DX: T87.89 Other complications of amputation stump (principal); Z89.411 Acquired absence of right great toe | CPT/HCPCS: 97605 ==

== ENCOUNTER 2017-12-02 08:08 | Outpatient (CLI) | payer OTHER | END 2017-12-02 08:09 | disposition home or self-care (01) | LOC: WCC 08:08 | PROVIDERS: ATTEND Family Medicine | DX: T81.89XD Other complications of procedures, not elsewhere classified, subsequent encounter (principal) | CPT/HCPCS: 97606 ==

== ENCOUNTER 2017-12-06 08:38 | Outpatient (CLI) | payer OTHER, SELFPAY ==
[~2017-12-06 08:38] MED LIST: Sodium Chloride 0.9% 15 ML NEB ONE
--- NOTE | 2017-12-06 09:13 | PRG ---
DATE OF SERVICE: 12/06/2017 Mr. Vanegas is seen today in Wound Care. His right foot wound looks good, it is granulating. He has had amputation of his right first, second, and third toes. This wound is healthy without infection. He has had a wound VAC. He has had problems with wound VAC over the weekend and placed a temporary wet to dry dressing. He has asked me about drainage, which I have told him that this will improve wi th time, that he will have yellowish or green drainage for as long as the wound is open, there is no evidence of infection. He does not need any more antibiotics. I have given him Ultram 50 mg, #40 wi th 2 refills for use as needed for pain. The patient will continue wound VAC care. I will see him i n Wound Care in about 2 weeks to reassess his wound. Overall, he is progressing and looking good.
== END 2017-12-06 08:39 | disposition home or self-care (01) ==
LOC: WCC 08:38
PROVIDERS: ATTEND Family Medicine
DX: T87.89 Other complications of amputation stump (principal); E11.9 Type 2 diabetes mellitus without complications; Z89.411 Acquired absence of right great toe; Z89.421 Acquired absence of other right toe(s)
CPT/HCPCS: 97605; A4218

== ENCOUNTER 2017-12-09 08:15 | Outpatient (CLI) | payer OTHER ==
--- NOTE | 2017-12-09 09:44 | PRG ---
DATE OF SERVICE: 12/09/2017 HISTORY: Mr. Lyle Vanegas is a very pleasant 42-year-old gentleman, who presents to the [facility] Center for evaluation of a wound of the right foot subsequent to amputation of the right great toe an d metatarsal. The patient underwent the preceding procedure on 11/09/[address] Caban. At surgery , the wound was left open to heal by secondary intention. The patient received negative pressure the rapy during his hospital stay. Upon discharge, the patient was referred to the Wound Center for the resumption of negative pressure therapy. The patient was discharged to home on ampicillin 500 mg p.o . q.i.d. PHYSICAL EXAMINATION: VITAL SIGNS: Temperature 98.2, pulse 86, respirations 18, blood pressure 142/96. Accu-Chek 160. EXTREMITIES: A wound of the right foot is present, which measures approximately 2.5 x 6.3 cm. The w ound is granulating. The wound is granulating. Necrotic and nonviable tissue present within the wou nd margins was debrided with an excisional full-thickness debridement with the use of a curette. No purulent drainage is associated with the wound. A tunnel is associated with the wound, which is appr oximately 3.3 cm in length. No erythema of the skin surrounding the wound is present. No maceration of the skin of the periwound is noted. No staining of the periwound is noted on exam today. At the time of the patient's visit on 11/18/2017, the periwound was stained green from serous drainage asso ciated with the wound. A dorsalis pedis pulse is easily palpable on the right. Edema of the right f oot is again present on exam today. ASSESSMENT AND PLAN: 1. Right foot wound subsequent to amputation of right great toe and metatarsal. Negative pressure t herapy has been resumed and will be continued with dressing changes of the wound VAC here in the [facility]. The patient has an appointment with Dr. Caban in 1 week. I will see Mr. Vanegas again in 2 weeks. 2. Asthma. 3. Diabetes mellitus. The patient's Accu-Chek in clinic today is 160. The patient has been reminde d that for optimal wound healing, his blood glucoses should remain below 150. 4. Gastroesophageal reflux disease. 5. Hypertension. 6. History of Meniere's.
== END 2017-12-09 08:16 | disposition home or self-care (01) ==
LOC: WCC 08:15
PROVIDERS: ATTEND Family Medicine
DX: T81.89XD Other complications of procedures, not elsewhere classified, subsequent encounter (principal); J45.909 Unspecified asthma, uncomplicated; E11.9 Type 2 diabetes mellitus without complications; K21.9 Gastro-esophageal reflux disease without esophagitis; I10 Essential (primary) hypertension; Z89.411 Acquired absence of right great toe
CPT/HCPCS: 11042

== ENCOUNTER 2017-12-13 08:38 | Outpatient (CLI) | payer OTHER | END 2017-12-13 08:39 | disposition home or self-care (01) | LOC: WCC 08:38 | PROVIDERS: ATTEND Family Medicine | DX: T81.89XD Other complications of procedures, not elsewhere classified, subsequent encounter (principal); Z89.411 Acquired absence of right great toe; Z89.421 Acquired absence of other right toe(s) | CPT/HCPCS: 97605 ==

== ENCOUNTER 2017-12-16 13:10 | Outpatient (CLI) | payer OTHER, SELFPAY | END 2017-12-16 13:11 | disposition home or self-care (01) | LOC: WCC 13:10 | PROVIDERS: ATTEND Family Medicine | DX: T87.89 Other complications of amputation stump (principal); Z89.411 Acquired absence of right great toe | CPT/HCPCS: 97605 ==

== ENCOUNTER 2017-12-20 08:27 | Outpatient (CLI) | payer OTHER, SELFPAY ==
[2017-12-20] MEDS ORDERED: Sodium Chloride 0.9% 15 ML NEB ONE (17:24)
== END 2017-12-20 08:28 | disposition home or self-care (01) ==
LOC: WCC 08:27
PROVIDERS: ATTEND Family Medicine
DX: T81.89XD Other complications of procedures, not elsewhere classified, subsequent encounter (principal); E11.621 Type 2 diabetes mellitus with foot ulcer; L97.519 Non-pressure chronic ulcer of other part of right foot with unspecified severity; Z89.412 Acquired absence of left great toe; Z89.421 Acquired absence of other right toe(s)
CPT/HCPCS: 97605; A4218

== ENCOUNTER 2017-12-23 08:28 | Outpatient (CLI) | payer OTHER, SELFPAY ==
[2017-12-24] MEDS ORDERED: Sodium Chloride 0.9% 15 ML NEB ONE (16:00)
== END 2017-12-23 08:29 | disposition home or self-care (01) ==
LOC: WCC 08:28
PROVIDERS: ATTEND Family Medicine
DX: T87.89 Other complications of amputation stump (principal); Z89.411 Acquired absence of right great toe
CPT/HCPCS: 97605

== ENCOUNTER 2017-12-27 13:29 | Outpatient (CLI) | payer OTHER, SELFPAY ==
[2017-12-27] MEDS ORDERED: Sodium Chloride 0.9% 15 ML NEB ONE (16:58)
== END 2017-12-27 13:30 | disposition home or self-care (01) ==
LOC: WCC 13:29
PROVIDERS: ATTEND Family Medicine
DX: T81.89XD Other complications of procedures, not elsewhere classified, subsequent encounter (principal); E11.621 Type 2 diabetes mellitus with foot ulcer; L97.519 Non-pressure chronic ulcer of other part of right foot with unspecified severity; Z89.412 Acquired absence of left great toe; Z89.421 Acquired absence of other right toe(s)
CPT/HCPCS: 97605; A4218

== ENCOUNTER 2017-12-30 08:32 | Outpatient (CLI) | payer OTHER, SELFPAY ==
--- NOTE | 2017-12-30 09:42 | PRG ---
DATE OF SERVICE: 12/30/2017 HISTORY: Mr. Lyle Vanegas is a very pleasant 42-year-old gentleman who presents to the Wound Center for evaluation of a wound of the right foot subsequent to amputation of the right great toe and metatarsal. The patient underwent the preceding procedure on 11/09/[address] Addy Caban. At surgery, the wound was left open to heal by secondary intention. The patient received negative pressure therapy during his hospital stay. Upon discharge, the patient was referred to the Wound Center for the resumption of negative pressure therapy. The patient was discharged to home on ampicillin 500 mg p.o. q.i.d. PHYSICAL EXAMINATION: VITAL SIGNS: Temperature 97.6, pulse 77, respirations 19, blood pressure 143/ 91. Accu-Chek 139. EXTREMITIES: A wound of the right foot is present which measures approximately 4.0 x 1.5 cm. The dimensions of the wound at the time of the patient's visit on 12/09/2017 were approximately 2.5 x 6.3 cm. The wound is granulating. Necrotic and nonviable tissue present within the wound margins was debrided with an excisional full-thickness debridement with the use of a curet. No purulent drainage is associated with the wound. A tunnel is still associated with the wound; however, the length of the tunnel has decreased since the patient's visit on 12/09/2017. No erythema of the skin surrounding the wound is present. No maceration of the skin of the periwound is noted. A dorsalis pedis pulse is easily palpable on the right. Edema of the right foot is again present on today's exam. ASSESSMENT AND PLAN: 1. Right foot wound subsequent to amputation of right great toe and metatarsal. Negative pressure therapy has been resumed and will be continued with dressing changes of the wound VAC here in the Wound Center. The patient will be seen by Dr. Caban in 1 week. I will see Mr. Vanegas again in 2 weeks. The patient states that he also has a follow-up appointment with Dr. Caban on 01/20/2018. 2. Diabetes mellitus. The patient's Accu-Chek in clinic today is 139. The patient has been reminded that for optimal wound healing, his blood glucoses should remain below 150. 3. Asthma. 4. Gastroesophageal reflux disease. 5. Hypertension. 6. History of Meniere's. MTDD
[2018-01-03] MEDS ORDERED: Lidocaine 2% Jelly 5 ML TUBE ONE ×2 (15:41→15:43)
[2018-01-03] MEDS ORDERED: Sodium Chloride 0.9% 15 ML NEB ONE (15:43)
== END 2017-12-30 08:33 | disposition home or self-care (01) ==
LOC: WCC 08:32
PROVIDERS: ATTEND Family Medicine
DX: T81.89XD Other complications of procedures, not elsewhere classified, subsequent encounter (principal); E11.9 Type 2 diabetes mellitus without complications; J45.909 Unspecified asthma, uncomplicated; K21.9 Gastro-esophageal reflux disease without esophagitis; I10 Essential (primary) hypertension; Z86.69 Personal history of other diseases of the nervous system and sense organs
CPT/HCPCS: 11042

== ENCOUNTER 2018-01-03 10:46 | Outpatient (CLI) | payer OTHER, SELFPAY | END 2018-01-03 10:47 | disposition home or self-care (01) | LOC: WCC 10:46 | PROVIDERS: ATTEND Family Medicine | DX: T81.89XD Other complications of procedures, not elsewhere classified, subsequent encounter (principal); E11.621 Type 2 diabetes mellitus with foot ulcer; L97.519 Non-pressure chronic ulcer of other part of right foot with unspecified severity; Z89.422 Acquired absence of other left toe(s); Z89.421 Acquired absence of other right toe(s) | CPT/HCPCS: 97605 ==

== ENCOUNTER 2018-01-06 11:38 | Outpatient (CLI) | payer OTHER | END 2018-01-06 11:39 | disposition home or self-care (01) | LOC: WCC 11:38 | PROVIDERS: ATTEND Family Medicine | DX: T81.89XD Other complications of procedures, not elsewhere classified, subsequent encounter (principal); Z89.411 Acquired absence of right great toe | CPT/HCPCS: 97605 ==

== ENCOUNTER 2018-01-10 10:54 | Outpatient (CLI) | payer OTHER, SELFPAY ==
[2018-01-10] MEDS ORDERED: Sodium Chloride 0.9% 15 ML NEB ONE (11:11)
== END 2018-01-10 10:55 | disposition home or self-care (01) ==
LOC: WCC 10:54
PROVIDERS: ATTEND Family Medicine
DX: T87.89 Other complications of amputation stump (principal); S91.301D Unspecified open wound, right foot, subsequent encounter; Z89.411 Acquired absence of right great toe
CPT/HCPCS: 97605; A4218

== ENCOUNTER 2018-01-13 08:59 | Outpatient (CLI) | payer OTHER, SELFPAY ==
--- NOTE | 2018-01-13 09:31 | PRG ---
DATE OF SERVICE: 01/13/2018 HISTORY: Mr. Lyle Vanegas is a very pleasant 42-year-old gentleman who presents to the Wound Center for evaluation of a wound of the right foot subsequent to amputation of the right great toe and metatarsal. The patient underwent the preceding procedure on 11/09/[address] Addy Caban. At surgery, the wound was left open to heal by secondary intention. The patient received negative pressure therapy during his hospital stay. Upon discharge, the patient was referred to the Wound Center for the resumption of negative pressure therapy. The patient was discharged to home on ampicillin 500 mg p.o. q.i.d. PHYSICAL EXAMINATION: VITAL SIGNS: Temperature 98.0, pulse 84, respirations 18, blood pressure 137/ 84. Accu-Chek 130. EXTREMITIES: A wound of the right foot is present which measures approximately 4.3 x 1.5 cm. The dimensions of the wound at the time of the patient's visit on 12/30/2017 were approximately 4.0 x 1.5 cm. The wound is granulating. Necrotic and nonviable tissue present within the wound margins was debrided with an excisional full-thickness debridement with the use of a curette. Callus at the periphery of the wound was excised with the use of scissors. No purulent drainage is associated with the wound. No tunnel is associated with the wound on exam today. No erythema of the skin surrounding the wound is present. No maceration of the skin of the periwound is noted. A dorsalis pedis pulse is easily palpable on the right. Edema of the right foot is again noted on today's exam. ASSESSMENT AND PLAN: 1. Right foot wound subsequent to amputation of right great toe and metatarsal. Negative pressure therapy will be continued with dressing changes of the wound VAC here in the Wound Center. The patient will be seen by Dr. Caban in 1 week. I will see Mr. Vanegas again in two weeks. Again, the patient states that he has a follow-up appointment with Dr. Caban on 01/20/2018. 2. Diabetes mellitus. The patient's Accu-Chek in clinic today is 130. The patient has been reminded that for optimal wound healing, his blood glucoses should remain below 150. 3. Asthma. 4. Gastroesophageal reflux disease. 5. Hypertension. 6. History of Meniere's. MTDD
[2018-01-13] MEDS ORDERED: Lidocaine 2% Jelly 5 ML TUBE ONE (11:11)
[2018-01-13] MEDS ORDERED: Sodium Chloride 0.9% 15 ML NEB ONE (11:11)
== END 2018-01-13 09:00 | disposition home or self-care (01) ==
LOC: WCC 08:59
PROVIDERS: ATTEND Family Medicine
DX: T81.89XD Other complications of procedures, not elsewhere classified, subsequent encounter (principal); E11.9 Type 2 diabetes mellitus without complications; J45.909 Unspecified asthma, uncomplicated; K21.9 Gastro-esophageal reflux disease without esophagitis; I10 Essential (primary) hypertension; Z86.69 Personal history of other diseases of the nervous system and sense organs
CPT/HCPCS: 11042; A4218

== ENCOUNTER 2018-01-20 11:11 | Outpatient (CLI) | payer OTHER ==
[2018-01-20] MEDS ORDERED: Sodium Chloride 0.9% 15 ML NEB ONE (14:16)
== END 2018-01-20 11:12 | disposition home or self-care (01) ==
LOC: WCC 11:11
PROVIDERS: ATTEND Family Medicine
DX: T81.89XD Other complications of procedures, not elsewhere classified, subsequent encounter (principal); Z89.411 Acquired absence of right great toe
CPT/HCPCS: 97602; A4218

== ENCOUNTER 2018-02-03 08:27 | Outpatient (CLI) | payer OTHER ==
--- NOTE | 2018-02-03 09:09 | PRG ---
DATE OF SERVICE: 02/03/2018 HISTORY: Mr. Lyle Vanegas is a very pleasant 43-year-old gentleman who presents to the W[facility] Cent er for evaluation of a wound of the right foot subsequent to amputation of the right great toe and me tatarsal. The patient underwent the preceding procedure on 11/09/[address] Addy Caban. [facility], the wound was left open to heal by secondary intention. The patient received negative pressure therapy during his hospital stay. Upon discharge, the patient was referred to the Wound Center for the resumption of negative pressure therapy. The patient was discharged to home on ampicillin 500 mg p.o. q.i.d. Since the patient's visit on 01/13/2018, negative pressure therapy has been discontinue d and the patient is receiving dressing changes of Silverlon gauze secured with tape followed by an A ce bandage. PHYSICAL EXAMINATION: VITAL SIGNS: Temperature 98.1, pulse 83, respirations 16, blood pressure 158/108. Accu-Chek 140. EXTREMITIES: A wound of the right foot is present which measures approximately 1.5 x 0.5 cm. The di mensions of the wound at the time of the patient's visit on 01/13/2018 were approximately 4.3 x 1.5 c m. The wound is granulating. Necrotic and nonviable tissue present within the wound margins was radha rided with an excisional full-thickness debridement with the use of a curette. No purulent drainage is associated with the wound. No erythema of the skin surrounding the wound is present. No macerati on of the skin of the periwound is noted. A dorsalis pedis pulse is easily palpable on the right. N o significant edema of the right foot is present on exam today. ASSESSMENT AND PLAN: 1. Right foot wound subsequent to amputation of right great toe and metatarsal. The patient has com pleted a course of negative pressure therapy. Dressing changes of Silverlon, 4 x 4s, Kerlix, and an Gil bandage are to be performed on a daily basis or alternatively three times per week after cleansin g and irrigation. The patient states he has a followup appointment with Dr. Caban next month. I wi ll see Mr. Vanegas again in two weeks. 2. Diabetes mellitus. The patient's Accu-Chek in clinic today is 140. The patient has been reminde d that for optimal wound healing, his blood glucoses should remain below 150. 3. Asthma. 4. Gastroesophageal reflux disease. 5. Hypertension. 6. History of Meniere's.
== END 2018-02-03 08:28 | disposition home or self-care (01) ==
LOC: WCC 08:27
PROVIDERS: ATTEND Family Medicine
DX: T87.89 Other complications of amputation stump (principal); E11.9 Type 2 diabetes mellitus without complications; J45.909 Unspecified asthma, uncomplicated; K21.9 Gastro-esophageal reflux disease without esophagitis; I10 Essential (primary) hypertension; Z86.69 Personal history of other diseases of the nervous system and sense organs; Z89.411 Acquired absence of right great toe
CPT/HCPCS: 11042

== ENCOUNTER 2018-02-24 08:14 | Outpatient (CLI) | payer OTHER, SELFPAY ==
[2018-02-24] MEDS ORDERED: Sodium Chloride 0.9% 15 ML NEB ONE (09:00)
[2018-02-24] MEDS ORDERED: Lidocaine 2% Jelly 5 ML TUBE ONE (09:00)
--- NOTE | 2018-02-24 10:04 | PRG ---
DATE OF SERVICE: 02/24/2018 HISTORY: Mr. Lyle Vanegas is a very pleasant 43-year-old gentleman who presents to the Wound Center for evaluation of a wound of the right foot subsequent to amputation of the right great toe and metatarsal. The patient underwent the preceding procedure on 11/09/[address] Addy Caban. At surgery, the wound was left open to heal by secondary intention. The patient received negative pressure therapy during his hospital stay. Upon discharge, the patient was referred to the Wound Center for the resumption of negative pressure therapy. The patient was discharged to home on ampicillin 500 mg p.o. q.i.d. After the patient's visit on 01/03/2018, negative pressure therapy was discontinued, and the patient has been receiving dressing changes of Silverlon. PHYSICAL EXAMINATION: VITAL SIGNS: Temperature 98.1, pulse 83, respirations 18, blood pressure 160/ 83. Accu-Chek 160. EXTREMITIES: A wound of the right foot is present which measures approximately 1.3 x 0.4 cm. The dimensions of the wound at the time of the patient's visit on 02/03/2018 were approximately 1.5 x 0.5 cm. The wound is granulating. Necrotic and nonviable tissue present within the wound margins was debrided with an excisional full-thickness debridement with the use of a curet. Callus, desiccated tissue, and undermining associated with the wound were eliminated with the use of scissors. No purulent drainage is associated with the wound. No erythema of the skin surrounding the wound is present. No maceration of the skin of the periwound is noted. A dorsalis pedis pulse is easily palpable on the right. No significant edema of the right foot is present on exam today. ASSESSMENT AND PLAN: 1. Right foot wound subsequent to amputation of right great toe and metatarsal. The patient has completed a course of negative pressure therapy, and dressing changes of Silverlon, 4 x 4s, an ABD, and Kerlix are to be performed on a daily basis or alternatively 3 times per week after cleansing and irrigation. The patient states he has a follow-up appointment with Dr. Caban in 1 week. I will see Mr. Vanegas again in 2 weeks. 2. Diabetes mellitus. The patient's Accu-Chek in clinic today is 160. The patient has been reminded that for optimal wound healing, his blood glucoses should remain below 150. 3. Asthma. 4. Gastroesophageal reflux disease. 5. Hypertension. 6. History of Meniere's. MTDD
== END 2018-02-24 08:15 | disposition home or self-care (01) ==
LOC: WCC 08:14
PROVIDERS: ATTEND Family Medicine
DX: T81.89XD Other complications of procedures, not elsewhere classified, subsequent encounter (principal); E11.621 Type 2 diabetes mellitus with foot ulcer; L97.519 Non-pressure chronic ulcer of other part of right foot with unspecified severity; K21.9 Gastro-esophageal reflux disease without esophagitis; J45.909 Unspecified asthma, uncomplicated; Z89.411 Acquired absence of right great toe
CPT/HCPCS: 11042; A4218

== ENCOUNTER 2018-03-14 08:20 | Outpatient (CLI) | payer OTHER ==
--- NOTE | 2018-03-14 09:19 | PRG ---
DATE OF SERVICE: 03/14/2018 HISTORY: Mr. Lyle Vanegas is a very pleasant 43-year-old gentleman who presents to the Wound Cent [facility] for evaluation of a wound of the right foot subsequent to amputation of the right great toe and me tatarsal. The patient underwent the preceding procedure on 11/09/[address] Addy Caban. At [facility], the wound was left open to heal by secondary intention. The patient received negative pressure therapy during his hospital stay. Upon discharge, the patient was referred to the Wound Center for the resumption of negative pressure therapy. The patient was discharged to home on ampicillin 500 mg p.o. q.i.d. Since the patient's visit on 01/03/2018, negative pressure therapy was discontinued an d the patient continues to receive dressing changes of Silverlon. PHYSICAL EXAMINATION: VITAL SIGNS: Temperature 97.6, pulse 83, respirations 19, blood pressure 152/93. Accu-Chek 149. EXTREMITIES: A wound of the right foot is present which measures approximately 0.5 x 0.5 cm. The di mensions of the wound at the time of the patient's visit on 02/24/2018 were approximately 1.3 x 0.4 c m. The wound is granulating. Necrotic and nonviable tissue present within the wound margins was radha rided with an excisional full-thickness debridement with the use of a curette. Callus desiccated tis jewell and undermining at the periphery of the wound were eliminated with the use of scissors. No purul ent drainage is associated with the wound. No erythema of the skin surrounding the wound is present. No maceration of the skin of the periwound is noted. A dorsalis pedis pulse is easily palpable on the right. No significant edema of the right foot is present on exam today. ASSESSMENT AND PLAN: 1. Right foot wound subsequent to amputation of right great toe and metatarsal. The patient has com pleted a course of negative pressure therapy. Dressing changes of Silverlon, 4 x 4s and ABD and Kerl ix will be continued on a daily basis or alternatively three times per week after cleansing and irrig ation. The patient states he has a followup appointment with Dr. Caban in 4 weeks. The patient sta dylan he was seen by Dr. Caban last week. I will see Mr. Vanegas again in two weeks. 2. Diabetes mellitus. The patient's Accu-Chek in clinic today is 149. The patient has been reminde d that for optimal wound healing, his blood glucoses should remain below 150. 3. Asthma. 4. Gastroesophageal reflux disease. 5. Hypertension. 6. History of Meniere's.
[2018-03-14] MEDS ORDERED: Sodium Chloride 0.9% 15 ML NEB ONE (14:52)
[2018-03-14] MEDS ORDERED: Lidocaine 2% Jelly 5 ML TUBE ONE (14:52)
== END 2018-03-14 08:21 | disposition home or self-care (01) ==
LOC: WCC 08:20
PROVIDERS: ATTEND Family Medicine
DX: T81.89XD Other complications of procedures, not elsewhere classified, subsequent encounter (principal); E11.621 Type 2 diabetes mellitus with foot ulcer; L97.519 Non-pressure chronic ulcer of other part of right foot with unspecified severity; J45.909 Unspecified asthma, uncomplicated; K21.9 Gastro-esophageal reflux disease without esophagitis; I10 Essential (primary) hypertension; Z89.411 Acquired absence of right great toe
CPT/HCPCS: A4218

== ENCOUNTER 2018-03-28 08:45 | Outpatient (CLI) | payer OTHER, SELFPAY ==
[2018-03-28] MEDS ORDERED: Sodium Chloride 0.9% 15 ML NEB ONE (09:00)
[2018-03-28] MEDS ORDERED: Lidocaine 2% Jelly 5 ML TUBE ONE (09:00)
--- NOTE | 2018-03-28 09:39 | PRG ---
DATE OF SERVICE: 03/28/2018 HISTORY: Mr. Lyle Vanegas is a very pleasant 43-year-old gentleman who presents to the Wound Center for evaluation of a wound of the right foot subsequent to amputation of the right great toe and metatarsal. The patient underwent the preceding procedure on 11/09/[address] Addy Caban. At surgery, the wound was left open to heal by secondary intention. The patient received negative pressure therapy during his hospital stay. Upon discharge, the patient was referred to the Wound Center for the resumption of negative pressure therapy. The patient was discharged to home on ampicillin 500 mg p.o. q.i.d. After the patient's visit on 01/03/2018, negative pressure therapy was discontinued. The patient continues to receive dressing changes of Silverlon on a daily basis after cleansing and irrigation. PHYSICAL EXAMINATION: VITAL SIGNS: Temperature 97.9, pulse 81, respirations 18, blood pressure 170/ 102. Accu-Chek 140. EXTREMITIES: A wound of the right foot is present which measures approximately 1.2 x 0.5 cm. The dimensions of the wound at the time of the patient's visit on 03/14/2018 were approximately 0.5 x 0.5 cm. The wound is granulating. Necrotic and nonviable tissue present within the wound margins was debrided with an excisional full-thickness debridement with the use of a curet. Callus, desiccated tissue, and undermining at the periphery of the wound were eliminated with the use of scissors. No purulent drainage is associated with the wound. No erythema of the skin surrounding the wound is present. No maceration of the skin of the periwound is noted. A dorsalis pedis pulse is easily palpable on the right. No significant edema of the right foot is present on exam today. ASSESSMENT AND PLAN: 1. Right foot wound subsequent to amputation of right great toe and metatarsal. The patient has completed a course of negative pressure therapy. Dressing changes of Silverlon, 4 x 4s, and Kerlix will be continued on a daily basis after cleansing and irrigation. The patient states he has a follow-up appointment with Dr. Caban in 1 week. I will see Mr. Vanegas again in 2 weeks. 2. Diabetes mellitus. The patient's Accu-Chek in clinic today is 140. The patient has been reminded that for optimal wound healing, his blood glucoses should remain below 150. 3. Asthma. 4. Gastroesophageal reflux disease. 5. Hypertension. 6. History of Meniere's. MTDD
== END 2018-03-28 08:46 | disposition home or self-care (01) ==
LOC: WCC 08:45
PROVIDERS: ATTEND Family Medicine
DX: T81.89XD Other complications of procedures, not elsewhere classified, subsequent encounter (principal); E11.9 Type 2 diabetes mellitus without complications; I10 Essential (primary) hypertension; J45.909 Unspecified asthma, uncomplicated; K21.9 Gastro-esophageal reflux disease without esophagitis; Z86.69 Personal history of other diseases of the nervous system and sense organs
CPT/HCPCS: 11042; A4218

== ENCOUNTER 2018-04-09 12:42 | Inpatient (IN) | payer SELFPAY ==
[2018-04-09 13:25] LABS: #Eosinphils 0.1 thou/uL (0.0-0.7); #Lymphocytes 1.8 thou/uL (1.20-3.40); #Monocytes 0.4 thou/uL (0.11-0.59); #Neutrophils 4.8 thou/uL (1.40-6.50); %Basophils 0.6 % (0.0-1.0); %Eosinophils 0.7 % (0.0-10.0); %Lymphocytes 24.9 % (21.0-51.0); %Monocytes 5.6 % (0.0-10.0); %Neutrophils 68.2 % (42.0-75.0); Hemoglobin 15.5 g/dL (14.0-18.0); Mean Corpuscular HGB CONC 34.6 g/dL (32.0-36.0); Mean Corpuscular Hemoglobin 30.4 pg (27.0-31.0); Platelet Count 221 thou/uL (130-400); RBC Distribution Width 11.8 % (11.5-14.5); Red Blood Cell (RBC) Count 5.09 mill/uL (4.70-6.10)
[2018-04-09] MEDS ORDERED: ISOVUE-370 76%-LOCM 1 ML ONE (13:26)
[2018-04-09 13:44] LABS: ALT (SGPT) 16 U/L (8-55); AST (SGOT) 12 U/L (5-34); Albumin 3.7 g/dL (3.5-5.0); Alkaline Phosphatase 78 U/L (40-150); Anion Gap 11 mmol/L (10-20); BUN (Urea Nitrogen) 12 mg/dL (8.9-20.6); Bilirubin, Total 0.7 mg/dL (0.2-1.2); Calc. Creatinine Clearance 0 mL/min (70-130); Calcium 9.2 mg/dL (7.8-10.44); Carbon Dioxide 23 mmol/L (22-29); Chloride 103 mmol/L (98-107); Estimated GFR-MDRD Greater than 90; Globulin 3.1 g/dL (2.4-3.5); Glucose 299 mg/dL (70-105); Lipase 371 U/L (8-78); Potassium 3.9 mmol/L (3.5-5.1); Protein, Total 6.8 g/dL (6.0-8.3); Sodium 133 mmol/L (136-145)
[2018-04-09 13:49] LABS: Troponin I Less than 0.010 ng/mL (< 0.028)
[2018-04-09] MEDS ORDERED: Morphine 4 MG/ML VIAL ONE ×2 (14:55→16:41)
[2018-04-09] MEDS ORDERED: Ondansetron ODT 4 MG TAB ONE (14:55)
--- NOTE | 2018-04-09 15:21 | RAD ---
CHEST 1 VIEW: HISTORY: Abdominal pain. COMPARISON: 07/15/17. FINDINGS: Normal cardiac silhouette. Lungs and pleural spaces are clear. No pneumothorax or osseous abnormali ties. IMPRESSION: No acute cardiopulmonary process. POS: [facility]
--- NOTE | 2018-04-09 16:14 | CT ---
CT OF THE ABDOMEN AND PELVIS WITH IV CONTRAST 04/09/18 INDICATION: Abdominal pain for three to four days. COMPARISON: Prior exam dated 03/20/16. FINDINGS: There is prominent inflammatory stranding seen surrounding the pancreas. The pancreatic parenchyma en hances. No drainable fluid collection is evident. There is a normal appendix in the right lower quadrant. There is calcifications of the vas deferens c an be seen in diabetic males. There are a few scattered diverticula involving decompressed colon. Small bowel is of normal caliber. There is fatty infiltration of the liver. The spleen and adrenal glands appear within normal limits. No definite acute osseous abnormality is evident. IMPRESSION: 1. Findings most consistent with pancreatitis. No drainable fluid collection is evident. The mac creatic parenchyma appears to enhance within normal limits. There is some shotty appearing lymph node s surrounding the peripancreatic head, likely reactive. 2. Mild fatty liver. 3. Colonic diverticulosis. POS: [facility]
[2018-04-09] MEDS ORDERED: Mag-Al 1200 mg/1200 mg/30 ML UDCUP PO PRN (16:57)
[2018-04-09] MEDS ORDERED: Acetaminophen 325 MG TAB PO PRN (16:57)
[2018-04-09] MEDS ORDERED: Bisacodyl 10 MG SUPP PR PRN (16:57)
[2018-04-09] MEDS ORDERED: Calcium Carbonate 500 MG ChewTAB PO PRN (16:57)
[2018-04-09] MEDS ORDERED: Senokot 8.6 MG TAB PO PRN (16:57)
[2018-04-09] MEDS ORDERED: Ondansetron HCl/PF 4 MG/2 ML Vial IVP PRN (16:57)
[2018-04-09] MEDS ORDERED: hydrALAZINE 20 MG/ML VIAL SLOW IVP PRN (17:00)
[2018-04-09] MEDS ORDERED: Morphine 4 MG/ML VIAL SLOW IVP PRN (17:00)
[2018-04-09] MEDS ORDERED: Dextrose 50% Abboject 50 ML SYRINGE SLOW IVP PRN (17:01)
[2018-04-09] MEDS ORDERED: Dextrose 5% in Water 1,000 ML IV PRN (17:01)
[2018-04-09 17:21] LABS: Alcohol Less than 10 mg/dL (Less than 10); Cardiac Risk 4.8 (Less than 4.5); Cholesterol 183 mg/dl (< 200 Desired); HDL Cholesterol 38 mg/dL (>60 Neg Risk); LDL Cholesterol, Calculated 111 mg/dL; Triglycerides 171 mg/dL (Less than 150)
[2018-04-09 17:38] LABS: Bilirubin Negative (Negative); Blood, Urine Trace (Negative); Clarity CLEAR (Clear); Glucose, Urine (Dipstick) >=1000 mg/dL (Negative); Leukocyte Negative (Negative); Nitrite Negative (Negative); Protein, Urine (Dipstick) 100 mg/dL (Neg-Trace); Specific Gravity, Urine 1.043 (1.002-1.036); Urobilinogen 0.2 mg/dL (0.2-1.0)
[2018-04-09 17:40] LABS: Bacteria/HPF None Seen HPF (None Seen); Hyaline Casts/LPF 0-3 HYALINE CAST LPF (0-3 Hyaline); RBC/HPF 0-3 HPF (0-3); Squamous Epithelial None Seen HPF (0-3); WBC/HPF None Seen HPF (0-3)
[2018-04-09 17:48] LABS: Amphetamine Not Detected (NotDetected); Barbiturates Screen Not Detected (NotDetected); Benzodiazepine Screen Not Detected (NotDetected); Cocaine Metabolite Screen Detected (NotDetected); Medtox Control Line Valid? VALID (VALID); Medtox Reader # READER 1; Methadone Not Detected (NotDetected); Methamphetamine Not Detected (NotDetected); Opiate Screen Detected (NotDetected); Oxycodone Screen Not Detected (NotDetected); Phencyclidine (PCP) Not Detected (NotDetected); THC/Cannabinoid Screen Not Detected (NotDetected); Tricyclic Screen Not Detected (NotDetected)
[2018-04-09 18:07] VITALS: BMI 39.4
[2018-04-09] MEDS: Dextrose 5 %-0.45 % NaCl 1,000 ML IV SCH ×3 (18:25→23:38)
--- NOTE | 2018-04-09 19:33 | HP ---
DATE OF ADMISSION: 04/09/2018 PRIMARY CARE PHYSICIAN: None. The patient does not have any insurance. CHIEF COMPLAINT: Abdominal pain for 3 days, nausea and vomiting this morning. HISTORY OF PRESENTING ILLNESS: Mr. Vanegas is a pleasant 43-year-old male with past medical history of diabetes mellitus and bilateral feet osteomyelitis one after the another requiring toe amputation, w ho was under the care of Dr. [facility]al [facility]: Presented to the emergency room with above-mentioned complaint. History is mainly obtained by the patient himself and electronical medica l records have been reviewed. Mr. Vanegas reports that he has been having abdominal pain for the last 3 or 4 days. It is mainly loca sebastian in the lower part on the right side of the abdomen. He has poor appetite and decreased oral inta ke. He started to have nausea and then vomited earlier this morning. He denies any fever or chills. He has been having alternating constipation and diarrhea for the last month or so. He denies any s ick contacts. He denies any dysuria, frequency, hematuria, or urgency. He denies any hematochezia o r melena. He denies any hematemesis. Upon presentation to the emergency room, he was quite hypertensive with a blood pressure 176/96, othe rwise stable. He underwent a general workup including laboratory examination and CT scan of the abdo men and pelvis. Both are consistent with acute pancreatitis with lipase of [address] scan findings consistent with acute pancreatitis as well. His urine drug screen that I have ordered after I have s een him just came back positive for cocaine as well. The patient denied any alcohol use to the emergency room physician, but when I asked him, he did repo rt that he drinks 2 cans of 25 ounces of beer every day. Now, he is being admitted for acute pancrea titis, likely secondary to alcohol abuse. PAST MEDICAL HISTORY: 1. Diabetes mellitus. 2. Hypertension. 3. Dyslipidemia. 4. Depression. 5. Asthma. 6. Meniere's disease. 7. Bilateral feet osteomyelitis, status post bilateral amputation one after the another. PAST SURGICAL HISTORY: Left toe amputation in 2016 and then right toe amputation in 2017. ALLERGIES: CODEINE. FAMILY HISTORY: Father with CVA and hypertension. Mother with hypertension and diabetes. SOCIAL HISTORY: Though, he initially denied drug or alcohol abuse, he did report drinking alcohol on a daily basis as above. He is positive for cocaine in the emergency room. He occasionally smokes a cigarette. CURRENT MEDICATIONS: Aspirin 81 mg daily, lisinopril/hydrochlorothiazide 20/12.5 mg daily, Amaryl 4 mg p.o. t.i.d., amlodipine 5 mg daily, tramadol 50 mg as needed every 8 hours for pain, metformin 500 mg p.o. b.i.d., Crestor 10 mg daily, and Protonix 40 mg daily. REVIEW OF SYSTEMS: The following complete review of systems was negative, unless otherwise mentioned in the HPI or below: Constitutional: Weight loss or gain, ability to conduct usual activities. Skin: Rash, itching. Eyes: Double vision, pain. ENT/Mouth: Nose bleeding, neck stiffness, pain, tenderness. Cardiovascular: Palpitations, dyspnea on exertion, orthopnea. Respiratory: Shortness of breath, wheezing, cough, hemoptysis, fever or night sweats. Gastrointestinal: Poor appetite, abdominal pain, heartburn, nausea, vomiting, constipation, or diarr hea. Genitourinary: Urgency, frequency, dysuria, nocturia. Musculoskeletal: Pain, swelling. Neurologic/Psychiatric: Anxiety, depression. Allergy/Immunologic: Skin rash, bleeding tendency. A 12-point review of systems was done and is negative except for those mentioned in the history and p hysical. LABORATORY DATA: His CBC is a rather unremarkable. His serum chemistry shows sodium of 133 and bloo d sugar of 299, otherwise unremarkable. Liver enzymes are normal. Lipase 371, triglyceride 171, tot al cholesterol 183, LDL 111, HDL of 38. Urinalysis showed proteinuria, glucosuria and trace ketones. Urine drug screen is positive for opiates and cocaine. Plasma alcohol level less than 10. IMAGING: Chest x-ray by my review has no evidence to suggest any acute cardiopulmonary abnormality. No infiltrate, edema or effusion. CT scan of the abdomen and pelvis done in the emergency room as per my review shows peripancreatic st randing and no drainable fluid collection. He had mild fatty infiltration of the liver as well as co lonic diverticulosis. PHYSICAL EXAMINATION: VITAL SIGNS: Most recent vital signs, temperature 96.5, pulse of 71, respirations 16, saturating 95% on room air, blood pressure 104/86. GENERAL: No acute distress, awake, alert, oriented x3. HEENT: Mucous membranes slightly dry. No oropharyngeal exudate or erythema. Head is normocephalic, atraumatic. Pupils equal, reactive to light and accommodation. Extraocular movement intact. NECK: Supple without any lymphadenopathy, JVD or bruit. CHEST: Clear to auscultation without any wheezing, rales or rhonchi. Rhythm is regular without any murmur, rubs or gallops. ABDOMEN: Mildly distended and tender to palpation in the lower region. No guarding, rebound or rigi dity. EXTREMITIES: Free of any cyanosis, clubbing or edema. NEUROLOGIC: Nonfocal. SKIN: Free of any rashes or bruises. I feel warm and dry to touch. PSYCHIATRIC: Normal affect. IMPRESSION AND PLAN: 1. Acute alcoholic pancreatitis. We will keep the patient n.p.o. and continue with him IV fluids. He will be started on D5 half normal saline to prevent hypoglycemic episodes as he is going to be n.p .o. and he is a diabetic. We will recheck lipase in the morning and monitor clinical symptoms. He h as been educated about pancreatitis and the need to abstain from alcohol completely. He verbalized u nderstanding, seems to be willing at least for now. We will add p.r.n. pain medication and antiemeti cs. We will also check ultrasound of the gallbladder as this has not been mentioned in the CT scan. Most likely sign and symptoms are due to alcoholic pancreatitis, but we will rule out cholelithiasis or choledocholithiasis as well. 2. Diabetes mellitus type 2. All of his oral medications will be on hold for now. We will provide him with insulin sliding scale with frequent Accu-Cheks. D5 half normal saline to prevent hypoglycem ia. 3. Hypertension. The patient is a little bit hypotensive, most likely secondary to multiple pain me dications given in the emergency room. At this time, we will hold his antihypertensives and use p.r. n. medications as needed by intravenous route. 4. Dyslipidemia. The patient will be restarted on his home medications when he is able to take oral ly. 5. Add deep venous thrombosis and gastrointestinal prophylaxis. We will give him IV Pepcid and subc utaneously Lovenox. 6. Add p.r.n. medication order and supportive care. 7. Check lipase, magnesium, phosphorus, CMP and CBC in the morning again. DISPOSITION: Mr. Vanegas is currently being admitted for acute pancreatitis: Likely alcoholic. Furth er management will depend upon his clinical course. Estimated length of stay at this time is at as t 2-3 midnights.
[2018-04-09] MEDS: Ondansetron ODT 4 MG TAB PO PRN (20:22)
[2018-04-09] MEDS: Famotidine/PF 20 mg/2ml Vial SLOW IVP SCH (20:22)
[2018-04-09] MEDS: Morphine 4 MG/ML VIAL SLOW IVP PRN (20:26)
[2018-04-09] MEDS: HumaLOG 300 UNITS/3 ML VIAL SC PRN (21:54)
[2018-04-10] MEDS: Morphine 4 MG/ML VIAL SLOW IVP PRN ×5 (02:16→20:05)
[2018-04-10] MEDS: Dextrose 5 %-0.45 % NaCl 1,000 ML IV SCH ×4 (03:48→15:53)
[2018-04-10] MEDS: HumaLOG 300 UNITS/3 ML VIAL SC PRN ×3 (05:55→17:41)
[2018-04-10 05:57] LABS: #Eosinphils 0.1 thou/uL (0.0-0.7); #Lymphocytes 2.5 thou/uL (1.20-3.40); #Monocytes 0.4 thou/uL (0.11-0.59); #Neutrophils 3.1 thou/uL (1.40-6.50); %Basophils 0.8 % (0.0-1.0); %Eosinophils 1.1 % (0.0-10.0); %Lymphocytes 40.4 % (21.0-51.0); %Monocytes 7.2 % (0.0-10.0); %Neutrophils 50.5 % (42.0-75.0); Hemoglobin 14.1 g/dL (14.0-18.0); Mean Corpuscular HGB CONC 33.8 g/dL (32.0-36.0); Mean Corpuscular Hemoglobin 30.2 pg (27.0-31.0); Mean Corpuscular Volume 89.3 fl (80.0-94.0); Mean Platelet Volume 7.2 fL (7.4-10.4); Platelet Count 229 thou/uL (130-400); RBC Distribution Width 11.8 % (11.5-14.5); Red Blood Cell (RBC) Count 4.67 mill/uL (4.70-6.10); White Blood Cell (WBC) Count 6.1 thou/uL (4.8-10.8)
[2018-04-10 06:18] LABS: ALT (SGPT) 12 U/L (8-55); AST (SGOT) 7 U/L (5-34); Albumin 3.3 g/dL (3.5-5.0); Alkaline Phosphatase 67 U/L (40-150); Anion Gap 8 mmol/L (10-20); BUN (Urea Nitrogen) 8 mg/dL (8.9-20.6); Bilirubin, Total 0.7 mg/dL (0.2-1.2); Calc. Creatinine Clearance 226 mL/min (70-130); Calcium 8.5 mg/dL (7.8-10.44); Carbon Dioxide 26 mmol/L (22-29); Chloride 102 mmol/L (98-107); Estimated GFR-MDRD Greater than 90; Globulin 2.8 g/dL (2.4-3.5); Glucose 286 mg/dL (70-105); Lipase 101 U/L (8-78); Magnesium 1.8 mg/dL (1.6-2.6); Phosphorus 3.8 mg/dL (2.3-4.7); Potassium 3.9 mmol/L (3.5-5.1); Protein, Total 6.1 g/dL (6.0-8.3)
[2018-04-10 06:31] LABS: Sodium 132 mmol/L (136-145)
--- NOTE | 2018-04-10 07:58 | ULT ---
RIGHT UPPER QUADRANT ULTRASOUND: DATE: 04/10/18. HISTORY: Pancreatitis. Diffuse lower abdominal pain. FINDINGS: The majority of the pancreas is obscured due to shadowing from bowel gas. No definite pancreatic or peripancreatic fluid collection was seen on this exam. There is a prominent fold within the gallbladder, but no gallbladder calculus is seen. There is no g allbladder wall thickening o pericholecystic fluid present. A portion of the common duct is mildly d ilated measuring 0.7 cm. No intrahepatic biliary ductal dilatation is seen. There is mild coarsened echotexture of the liver which may be attributable to the infiltration. No f ocal hepatic lesion is evident. The visualized portions of the IVC and right kidney demonstrate a normal sonographic appearance. The right kidney measures 11.8 cm in length. A negative sonographic Sarmiento's sign was elicited during the exam. IMPRESSION: 1. Mild coarsened echotexture of the liver which is nonspecific but may be attributable to mild fatt y infiltration. 2. No gallbladder calculus is seen. 3. Mild dilatation of a portion of the extrahepatic common duct which measures 0.7 cm. No intrahepa tic biliary ductal dilatation is present. POS: SEBAS
[2018-04-10] MEDS: Enoxaparin Sodium 40 MG/0.4 ML SYRINGE SC SCH (09:17)
[2018-04-10] MEDS: Ondansetron ODT 4 MG TAB PO PRN (09:17)
[2018-04-10] MEDS: Famotidine/PF 20 mg/2ml Vial SLOW IVP SCH ×2 (09:18→20:55)
[2018-04-10] MEDS: Bisacodyl 5 MG TAB PO PRN (13:37)
[2018-04-10] MEDS: Sodium Chloride 0.45% 1,000 ML IV SCH (17:42)
--- NOTE | 2018-04-10 21:29 | PRG ---
DATE OF SERVICE: 04/10/2018 SUBJECTIVE: The patient seen and examined at the bedside, he has pain in the mid portion of his abdo men. He rates the pain from 4-7. The medications, he is getting opioids IV last up to 2 hours. OBJECTIVE: VITAL SIGNS: Blood pressure is 139/84, pulse is 73, respiratory rate is 20, O2 saturation 95% on canelo m air, and temperature is 99.2. GENERAL: He is obese. His BMI is 39.4. His weight is 307. HEENT: Head is atraumatic, normocephalic. Eyes are PERRLA, conjunctiva pinkish. Oral mucosa is omid st. NECK: Supple. LUNGS: Clear. HEART: S1 and S2 normal. ABDOMEN: Obese. Mildly distended, tender in the mid portion at the epigastric area to palpation. N o guarding, no masses. EXTREMITIES: No clubbing, cyanosis or edema. NEUROLOGIC: He is alert and oriented x4. There is not any sensorimotor deficit present. Cranial ne rves are intact. LABORATORY DATA: Showed a white count of 6.1, hemoglobin 14.1, hematocrit 41.7, platelet count is 22 9,000. His chemistry showed sodium of 132, potassium 3.9, chloride 102, CO2 of 26, BUN 8. His glycemia is ranging from 249-287 IMPRESSION: 1. Abdominal pain with mildly elevated lipase with improvement. I suspect that this is most likely chronic pancreatitis, alcohol related. The CT of the abdomen and pelvis which was done yesterday vijay wed findings consistent with pancreatitis without any drainable fluid collection evident. Also, ther e was some mild fatty liver and colonic diverticulosis without diverticulitis, so at this point, we w ill continue his although I would start him on small dose of clear liquids and see whether he c an tolerate this. If he gets worse, we will stop his p.o. intake completely down to n.p.o. level. W e will continue IV fluids. 2. Diabetes mellitus type 2. We will stop his D5 half normal saline. We will change him to half no rmal saline IV fluids. We will continue his opioids for pain management. 3. Hypertension. 4. Dyslipidemia. PLAN: I mentioned above, we will try him on clear liquids since his lipase level does not correlate to the pain and there was not any other finding on the CT of the abdomen and pelvis also we will cont inue his p.r.n. Zofran and Lovenox 40 mg subcutaneously every 24 hours for DVT prophylaxis and we chana hoover start him on bisacodyl p.o. p.r.n. for constipation.
[2018-04-11] MEDS: Sodium Chloride 0.45% 1,000 ML IV SCH ×3 (00:08→15:16)
[2018-04-11] MEDS: Morphine 4 MG/ML VIAL SLOW IVP PRN ×6 (00:08→21:02)
[2018-04-11] MEDS: HumaLOG 300 UNITS/3 ML VIAL SC PRN ×3 (06:45→16:31)
[2018-04-11] MEDS: Enoxaparin Sodium 40 MG/0.4 ML SYRINGE SC SCH (09:32)
[2018-04-11] MEDS: Bisacodyl 5 MG TAB PO PRN (09:50)
--- NOTE | 2018-04-11 12:14 | PDOC.PN ---
- Subjective Encounter Start Date: 04/11/18 Encounter Start Time: 07:00 -: old records requested/rev Patient seen and examined for pancreatitis, pt still has abdominal pain, no vomiting, tolerating current diet. No overnight events - Objective MAR Reviewed: Yes Vital Signs & Weight: Vital Signs (12 hours) Temp Pulse Resp BP Pulse Ox 04/11/18 08:00 98.1 F 63 16 93 L 04/11/18 07:21 98.1 F 63 16 139/84 93 L Weight Admit Weight 307 lb Weight 307 lb I&O: 04/10/18 04/11/18 04/12/18 06:59 06:59 06:59 Intake Total 5155 960 Output Total 5100 Balance 55 960 Result Diagrams: 04/10/18 05:25 04/10/18 05:25 Additional Labs: Accuchecks 04/11/18 04/11/18 04/10/18 11:17 05:45 20:46 POC Glucose 255 H 200 H 193 H 04/10/18 04/10/18 15:53 11:44 POC Glucose 249 H 255 H Phys Exam - Physical Examination Constitutional: NAD HEENT: PERRLA, moist MMs, sclera anicteric Neck: no JVD, supple Respiratory: no wheezing, no rales, no rhonchi Cardiovascular: RRR, no significant murmur, no rub Gastrointestinal: soft, no distention, positive bowel sounds vague diffuse discomfort Musculoskeletal: no edema, pulses present Neurological: non-focal, normal sensation, moves all 4 limbs Psychiatric: normal affect, A&O x 3 Skin: no rash, normal turgor Dx/Plan (1) Acute pancreatitis Code(s): K85.90 - ACUTE PANCREATITIS WITHOUT NECROSIS OR INFECTION, UNSP Status: Acute (2) Cocaine abuse Code(s): F14.10 - COCAINE ABUSE, UNCOMPLICATED Status: Acute (3) Asthma Code(s): J45.909 - UNSPECIFIED ASTHMA, UNCOMPLICATED Status: Chronic (4) Diabetes type 2, controlled Code(s): E11.9 - TYPE 2 DIABETES MELLITUS WITHOUT COMPLICATIONS Status: Chronic (5) Diverticulosis of colon Code(s): K57.30 - DVRTCLOS OF LG INT W/O PERFORATION OR ABSCESS W/O BLEEDING Status: Chronic (6) Dyslipidemia Code(s): E78.5 - HYPERLIPIDEMIA, UNSPECIFIED Status: Chronic (7) Fatty liver Code(s): K76.0 - FATTY (CHANGE OF) LIVER, NOT ELSEWHERE CLASSIFIED Status: Chronic (8) HTN (hypertension) Code(s): I10 - ESSENTIAL (PRIMARY) HYPERTENSION Status: Chronic (9) Obesity (BMI 30-39.9) Code(s): E66.9 - OBESITY, UNSPECIFIED Status: Chronic - Plan cont current plan of care, plan discussed w/ family * continue full liquid diet today * will repeat labs tomorrow * continue pain control with morphin * reduce IVF at 75 ml per hour * counselled to avoid cocaine * medication reviewed as below * symptomatic treatment. Review of Systems - Review of Systems Eyes: negative: Pain, Vision Change, Conjunctivae Inflammation, Eyelid Inflammation, Redness, Other ENT: negative: Ear Pain, Ear Discharge, Nose Pain, Nose Discharge, Nose Congestion, Mouth Pain, Mouth Swelling, Throat Pain, Throat Swelling, Other Respiratory: negative: Cough, Dry, Shortness of Breath, Hemoptysis, SOB with Excertion, Pleuritic Pain, Sputum, Wheezing Cardiovascular: negative: chest pain, palpitations, orthopnea, paroxysmal nocturnal dyspnea, edema, light headedness, other Gastrointestinal: Abdominal Pain. negative: Nausea, Vomiting, Diarrhea, Constipation, Melena, Hematochezia, Other Genitourinary: negative: Dysuria, Frequency, Incontinence, Hematuria, Retention , Other Musculoskeletal: negative: Neck Pain, Shoulder Pain, Arm Pain, Back Pain, Hand Pain, Leg Pain, Foot Pain, Other Skin: negative: Rash, Lesions, Luigi, Bruising, Other - Medications/Allergies Allergies/Adverse Reactions: Allergies Allergy/AdvReac Type Severity Reaction Status Date / Time codeine phosphate AdvReac Mild Verified 04/09/18 18:05 [From Tylenol-Codeine #3] Medications: Current Medications Acetaminophen (Tylenol) 650 mg PO Q4H PRN PRN Reason: Headache/Fever or Pain Al Hydroxide/Mg Hydroxide (Maalox) 30 ml PO Q6H PRN PRN Reason: Heartburn or Indigestion Bisacodyl (Dulcolax) 10 mg PO DAILYPRN PRN PRN Reason: Constipation Last Admin: 04/11/18 09:50 Dose: 10 mg Bisacodyl (Dulcolax) 10 mg MS Q24H PRN PRN Reason: Constipation Calcium Carbonate (Tums) 1,000 mg PO Q4H PRN PRN Reason: Heartburn or Indigestion Dextrose/Water (Dextrose 50%) 25 gm SLOW IVP PRN PRN PRN Reason: Hypoglycemia Enoxaparin Sodium (Lovenox) 40 mg SC 0900 [facility] Last Admin: 04/11/18 09:32 Dose: 40 mg Famotidine (Pepcid) 20 mg SLOW IVP Q12HR [facility] Last Admin: 04/10/18 20:55 Dose: 20 mg Glucagon (Glucagon) 1 mg IM PRN PRN PRN Reason: Hypoglycemia Hydralazine HCl (Apresoline) 10 mg SLOW IVP Q4H PRN PRN Reason: SBP>160 Dextrose/Water (D5w) 1,000 mls @ 0 mls/hr IV .Q0M PRN; As Directed PRN Reason: Hypoglycemia Sodium Chloride (1/2 Normal Saline) 1,000 mls @ 75 mls/hr IV .[id number] [facility] Insulin Human Lispro (Humalog) 0 units SC .MODERATE SLIDING SC PRN PRN Reason: Moderate Correctional Scale Last Admin: 04/11/18 11:30 Dose: 6 units Insulin Human Lispro (Humalog) 0 units SC .BEDTIME SLIDING SC PRN PRN Reason: Bedtime Correctional Scale Last Admin: 04/10/18 05:55 Dose: 3 unit Morphine Sulfate (Morphine) 4 mg SLOW IVP Q4H PRN PRN Reason: severe pain Last Admin: 04/11/18 09:31 Dose: 4 mg Ondansetron HCl (Zofran) 4 mg IVP Q6H PRN PRN Reason: Nausea/Vomiting Ondansetron HCl (Zofran Odt) 4 mg PO Q6H PRN PRN Reason: Nausea/Vomiting Last Admin: 04/10/18 09:17 Dose: 4 mg Senna (Senokot) 2 tab PO HSPRN PRN PRN Reason: Constipation Last Admin: 04/11/18 02:12 Dose: 2 tab Sodium Chloride (Flush - Normal Saline) 10 ml IVF PRN PRN PRN Reason: Saline Flush Sodium Chloride (Flush - Normal Saline) 10 ml IVF BID [facility] Last Admin: 04/11/18 09:33 Dose: 10 ml
[2018-04-11] MEDS: Famotidine/PF 20 mg/2ml Vial SLOW IVP SCH (14:52)
[2018-04-11] MEDS: Famotidine 20 MG TAB PO SCH (20:56)
[2018-04-12] MEDS: Morphine 4 MG/ML VIAL SLOW IVP PRN ×3 (01:33→09:22)
[2018-04-12] MEDS: Sodium Chloride 0.45% 1,000 ML IV SCH (01:35)
[2018-04-12 04:44] LABS: #Eosinphils 0.1 thou/uL (0.0-0.7); #Lymphocytes 2.1 thou/uL (1.20-3.40); #Monocytes 0.4 thou/uL (0.11-0.59); #Neutrophils 2.9 thou/uL (1.40-6.50); %Basophils 0.7 % (0.0-1.0); %Eosinophils 1.9 % (0.0-10.0); %Lymphocytes 38.5 % (21.0-51.0); %Monocytes 7.1 % (0.0-10.0); %Neutrophils 51.8 % (42.0-75.0); Mean Corpuscular HGB CONC 34.5 g/dL (32.0-36.0); Mean Corpuscular Hemoglobin 30.8 pg (27.0-31.0); Mean Corpuscular Volume 89.3 fl (80.0-94.0); Mean Platelet Volume 7.3 fL (7.4-10.4); Platelet Count 234 thou/uL (130-400); RBC Distribution Width 11.7 % (11.5-14.5); Red Blood Cell (RBC) Count 4.87 mill/uL (4.70-6.10); White Blood Cell (WBC) Count 5.5 thou/uL (4.8-10.8)
[2018-04-12 05:28] LABS: ALT (SGPT) 13 U/L (8-55); AST (SGOT) 9 U/L (5-34); Albumin 3.2 g/dL (3.5-5.0); Alkaline Phosphatase 64 U/L (40-150); Anion Gap 10 mmol/L (10-20); BUN (Urea Nitrogen) 7 mg/dL (8.9-20.6); Bilirubin, Total 0.4 mg/dL (0.2-1.2); CRP (Inflammatory) 1.62 mg/dL (= or < 0.5); Calc. Creatinine Clearance 232 mL/min (70-130); Calcium 8.6 mg/dL (7.8-10.44); Carbon Dioxide 23 mmol/L (22-29); Chloride 105 mmol/L (98-107); Estimated GFR-MDRD Greater than 90; Globulin 2.9 g/dL (2.4-3.5); Glucose 233 mg/dL (70-105); Lipase 82 U/L (8-78); Potassium 3.8 mmol/L (3.5-5.1); Protein, Total 6.1 g/dL (6.0-8.3); Sodium 134 mmol/L (136-145)
[2018-04-12] MEDS: HumaLOG 300 UNITS/3 ML VIAL SC PRN (05:44)
[2018-04-12 07:31] VITALS: BP 126/80; TEMP 98.2
[2018-04-12] MEDS: Famotidine 20 MG TAB PO SCH (09:22)
[2018-04-12] MEDS: Enoxaparin Sodium 40 MG/0.4 ML SYRINGE SC SCH (09:32)
--- NOTE | 2018-04-12 14:05 | DIS ---
DATE OF ADMISSION: 04/09/2018 DATE OF DISCHARGE: 04/12/2018 PRIMARY CARE PHYSICIAN: [facility] call admission. DISCHARGE DISPOSITION: Home. PRIMARY DISCHARGE DIAGNOSIS: Acute pancreatitis. SECONDARY DISCHARGE DIAGNOSES: Cocaine abuse, asthma, diabetes type 2, diverticulosis of colon, dysl ipidemia, fatty liver, hypertension, obesity. PRIMARY PROCEDURES/OPERATIONS: None. RADIOLOGICAL INVESTIGATION: Chest x-ray normal. CT of the abdomen and pelvis consistent with acute pancreatitis. Abdominal ultrasound was negative for any cholelithiasis. SIGNIFICANT LABS: WBC 5.5, hemoglobin 15.0, platelet 234. Sodium 134, potassium 3.8, BUN 7, creatin ine 0.81, calcium 8.6, AST 9, ALT 13, alkaline phosphatase is 64, albumin 3.2. CRP 1.62, lipase 82. Triglyceride 171. Urinalysis unremarkable. Urine drug screen positive for cocaine. DISCHARGE MEDICATIONS: Amlodipine 5 mg p.o. daily, aspirin 81 mg p.o. daily, Amaryl 4 mg p.o. t.i.d. , metformin 500 mg p.o. b.i.d., Protonix 40 mg p.o. daily, Crestor 10 mg p.o. daily, tramadol 50 mg q .8 hourly p.r.n. CONTRAINDICATIONS: None. CODE STATUS: FULL CODE. INPATIENT CONSULTANTS: None. ALLERGIES: CODEINE. DISCHARGE PLAN: Post hospital, the patient will follow up with primary care physician. HOSPITAL COURSE: A 43-year-old male who was admitted by Dr. Singleton. Please see her H&P for further details. The patient was admitted for abdominal pain. He had elevated lipase. The patient also mendoza s alcohol abuse history as well as periodic cocaine abuse history. He had CT of the abdomen and pelv is which was consistent with acute pancreatitis. Patient was admitted to medical floor and he was tr eated standard way for acute pancreatitis with n.p.o., IV fluid and pain control with pain medication . His lipase was improving and slowly we advanced diet to full liquid diet. The patient was tolerat ing that diet very well. The patient had improvement in lipase as well. The patient's abdominal brittney n is gradually getting better. We advised him to avoid alcohol abuse. We also provided counseling t o avoid cocaine abuse. The patient was taking hydrochlorothiazide with lisinopril and his blood pressure was running low and that is why we advised to discontinue that medication. Rest of medication was continued as per prev ious. The patient is advised to follow up with primary care physician in a week or two. The patient is seen and examined at bedside today. PHYSICAL EXAMINATION: VITAL SIGNS: Currently, temperature 98.2, pulse 60, respiratory rate 16, saturation 94% on room air, blood pressure 126/80, weight 307 pounds. GENERAL: The patient is currently alert, oriented, no acute distress. HEAD: Normocephalic, atraumatic. EYES: Pupils round, reactive to light. Extraocular muscle intact. ENT: Oropharynx within normal limits. Moist mucous membranes, no oral lesion, no pharyngeal erythem a, no exudate. NECK: Supple, no JVD, no thyromegaly, no carotid bruit. LUNGS: Clear to auscultation without any rhonchi or rales. CARDIAC: S1, S2 regular without any murmur. ABDOMEN: Soft and benign. EXTREMITIES: No edema. NEUROLOGIC: Nonfocal examination. The patient is medically stable for discharge today.
== END 2018-04-12 10:46 | disposition home or self-care (01) | DRG 440 ==
LOC: ERS 12:42 → ONC 16:44
PROVIDERS: ADMIT Internal Medicine; ATTEND Internal Medicine
DX: K85.20 Alcohol induced acute pancreatitis without necrosis or infection (principal); E11.9 Type 2 diabetes mellitus without complications; I10 Essential (primary) hypertension; F14.10 Cocaine abuse, uncomplicated; J45.909 Unspecified asthma, uncomplicated; E78.5 Hyperlipidemia, unspecified; K57.30 Diverticulosis of large intestine without perforation or abscess without bleeding; K76.0 Fatty (change of) liver, not elsewhere classified; E66.9 Obesity, unspecified
CPT/HCPCS: 36415; 36416; 71045; 74177; 76705; 80053; 80061; 80306; 80307; 81003; 81015; 83690; 83735; 84100; 84484; 85025; 86140; 90471; 90732; 93005; 96361; 96374; 96376; A4216; G0009; J1650; J2270; Q0162; S0028

== ENCOUNTER 2018-04-18 08:15 | Outpatient (CLI) | payer SELFPAY ==
--- NOTE | 2018-04-18 11:08 | PRG ---
DATE OF SERVICE: 04/18/2018 HISTORY: Mr. Lyle Vanegas is a very pleasant 43-year-old gentleman who presents to the [facility] for evaluation of a wound of the right foot subsequent to amputation of the right great toe and metatarsal. The patient underwent the preceding procedure on 11/09/[address] Addy Caban. At surgery, the wound was left open to heal by secondary intention. The patient received negative press ure therapy during his hospital stay. Upon discharge, the patient was referred to the [facility] f or the resumption of negative pressure therapy. The patient was discharged to home on ampicillin 500 mg p.o. q.i.d. Since the patient's visit on 01/03/2018 negative pressure therapy was discontinued. The patient has been receiving dressing changes of Silverlon on a daily basis after cleansing and ir rigation. PHYSICAL EXAMINATION: VITAL SIGNS: Temperature 97.8, pulse 73, respirations 19, blood pressure 161/98. Accu-Chek 140. EXTREMITIES: A wound of the right foot is present which measures approximately 1.1 x 0.4 cm. The di mensions of the wound at the time of the patient's visit on 03/28/2018 were approximately 1.2 x 0.5 c m. The wound is granulating. Necrotic and nonviable tissue present within the wound margins was radha rided with an excisional full-thickness debridement with the use of scissors. Callus, desiccated tis jewell and undermining at the periphery of the wound were also eliminated with the use of scissors. No purulent drainage is associated with the wound. No erythema of the skin surrounding the wound is pre sent. No maceration of the skin of the periwound is noted. A dorsalis pedis pulse is easily palpabl e on the right. No significant edema of the right foot is present on exam today. ASSESSMENT AND PLAN: 1. Right foot wound subsequent to amputation of right great toe and metatarsal. The patient has com pleted a course of negative pressure therapy, dressing changes of Silvercel are to be performed on a daily basis after cleansing and irrigation. The patient has a followup appointment with Dr. Arsh osullivan 1 week. I will see Mr. Vanegas again in 2 weeks. 2. Diabetes mellitus. The patient's Accu-Chek in clinic today is 140. The patient has been reminde d that for optimal wound healing, his blood glucoses should remain below 150. 3. Asthma. 4. Gastroesophageal reflux disease. 5. Hypertension. 6. History of Meniere's.
== END 2018-04-18 08:16 | disposition home or self-care (01) ==
LOC: WCC 08:15
PROVIDERS: ATTEND Family Medicine
DX: T81.89XD Other complications of procedures, not elsewhere classified, subsequent encounter (principal); E11.9 Type 2 diabetes mellitus without complications; J45.909 Unspecified asthma, uncomplicated; K21.9 Gastro-esophageal reflux disease without esophagitis; I10 Essential (primary) hypertension; Z89.431 Acquired absence of right foot
CPT/HCPCS: 11042

== ENCOUNTER 2018-05-09 08:02 | Outpatient (CLI) | payer SELFPAY ==
[~2018-05-09 08:02] MED LIST changes: +Lidocaine 2% Jelly 5 ML TUBE ONE
--- NOTE | 2018-05-09 08:47 | PRG ---
DATE OF SERVICE: 05/09/2018 HISTORY: Mr. Lyle Vanegas is a very pleasant 43-year-old gentleman who [facility] for evaluation of a wound of the right foot subsequent to amputation of the right great toe an d metatarsal. The patient underwent the preceding procedure on 11/09/[address] Addy Caban. At surgery, the wound was left open to heal by secondary intention. The patient received negative pres sure therapy during his hospital stay. Upon discharge, the patient was referred to the [facility] for the resumption of negative pressure therapy. The patient was discharged to home on ampicillin 50 0 mg p.o. q.i.d. After the patient's visit on 01/03/2018, negative pressure therapy was discontinued . The patient received dressing changes of Silverlon on a daily basis after cleansing and irrigation . More recently, the patient has been receiving dressing changes of Silvercel also on a daily basis after cleansing and irrigation. PHYSICAL EXAMINATION: VITAL SIGNS: Temperature 97.7, pulse 93, respirations 19, blood pressure 136/85. Accu-Chek 139. EXTREMITIES: A wound of the right foot is present which measures approximately 1.5 x 0.3 cm. The di mensions of the wound at the time of the patient's visit on 04/18/2018 were approximately 1.1 x 0.4 c m. The wound is granulating. Necrotic and nonviable tissue present within the wound margins was radha rided with an excisional full-thickness debridement with the use of a curette and scissors. Callus, desiccated tissue and undermining at the periphery of the wound were also eliminated with the use of scissors. No purulent drainage is associated with the wound. No erythema of the skin surrounding th e wound is present. No maceration of the skin of the periwound is noted. A dorsalis pedis pulse is easily palpable on the right. No significant edema of the right foot is present on exam today. ASSESSMENT AND PLAN: 1. Right foot wound subsequent to amputation of right great toe and metatarsal. The patient has com pleted a course of negative pressure therapy. Dressing changes of Silvercel will be continued on a d aily basis after cleansing and irrigation. I will see Mr. Vanegas again in 2 weeks. The patient has a followup appointment with Dr. Caban in 3 weeks. 2. Diabetes mellitus. The patient's Accu-Chek in clinic today is 139. The patient has been reminde d that for optimal wound healing, his blood glucoses should remain below 150. 3. Asthma. 4. Gastroesophageal reflux disease. 5. Hypertension. 6. History of Meniere's.
== END 2018-05-09 08:03 | disposition home or self-care (01) ==
LOC: WCC 08:02
PROVIDERS: ATTEND Family Medicine
DX: T81.89XD Other complications of procedures, not elsewhere classified, subsequent encounter (principal); E11.9 Type 2 diabetes mellitus without complications; Z89.422 Acquired absence of other left toe(s); Z89.421 Acquired absence of other right toe(s)
CPT/HCPCS: 11042; A4218

== ENCOUNTER 2019-02-13 16:57 | Outpatient (CLI) | payer MEDICARE ==
--- NOTE | 2019-02-13 18:04 | ULT ---
ULTRASOUND LEFT LOWER EXTREMITY VENOUS DOPPLER: History: Swelling and edema. Comparison: None. FINDINGS: Real-time grayscale, color doppler, and spectral analysis left lower extremity venous system was perf ormed. Common femoral, femoral, proximal portion of the greater saphenous and deep femoral vein, as w ell as popliteal and posterior tibial veins were interrogated. Normal flow, augmentation, and compression. IMPRESSION: No deep venous thrombosis. POS: [facility]
--- NOTE | 2019-02-14 07:21 | ULT ---
LEFT LOWER EXTREMITY VENOUS DOPPLER: History: Edema, pain. Comparison: None. FINDINGS: Real-time grayscale, color doppler, and spectral analysis left lower extremity venous system was perf ormed. The common femoral, femoral, proximal portions of the deep femoral veins as well as the poplit eal and posterior tibial veins were interrogated. There is thrombosis of nearly the entire left lower extremity seen from the common femoral vein down to the femoral and popliteal and posterior tibial veins. This is occlusive thrombus. IMPRESSION: Occlusive thrombus left lower extremity venous system. Code Cr. Dr. Caban at 5:30 p.m. Patient is to go to the ER. POS: [facility]
== END 2019-02-13 16:58 | disposition home or self-care (01) ==
LOC: ULT 16:57
PROVIDERS: ATTEND Specialist
DX: R22.42 Localized swelling, mass and lump, left lower limb (principal); I82.4Z2 Acute embolism and thrombosis of unspecified deep veins of left distal lower extremity

== ENCOUNTER 2019-02-13 17:31 | Emergency (ER) | payer MEDICARE | END 2019-02-13 18:40 | disposition home or self-care (01) | LOC: ERS 17:31 | DX: M79.89 Other specified soft tissue disorders (principal); E11.9 Type 2 diabetes mellitus without complications; E78.5 Hyperlipidemia, unspecified; I10 Essential (primary) hypertension; K21.9 Gastro-esophageal reflux disease without esophagitis; J45.909 Unspecified asthma, uncomplicated; Z87.891 Personal history of nicotine dependence | CPT/HCPCS: 99282 ==

== ENCOUNTER 2020-01-25 09:06 | Emergency (ER) | payer MEDICARE ==
[2020-01-25] MEDS ORDERED: Acetaminophen 500 MG TAB ONE (10:03)
== END 2020-01-25 10:07 | disposition home or self-care (01) ==
LOC: ERS 09:06
DX: J06.9 Acute upper respiratory infection, unspecified (principal); E78.00 Pure hypercholesterolemia, unspecified; E78.5 Hyperlipidemia, unspecified; I10 Essential (primary) hypertension; F41.9 Anxiety disorder, unspecified; E11.9 Type 2 diabetes mellitus without complications; J45.909 Unspecified asthma, uncomplicated; K21.9 Gastro-esophageal reflux disease without esophagitis; Z87.891 Personal history of nicotine dependence; Z79.01 Long term (current) use of anticoagulants
CPT/HCPCS: 87804; 99283

== ENCOUNTER 2023-01-20 15:36 | Inpatient (IN) | payer MEDICARE ==
[2023-01-20] MEDS ORDERED: Cefepime 2 GM VIAL ONE (15:53)
[2023-01-20 16:10] LABS: Hemoglobin 13.2 g/dL (14.0-18.0); Mean Corpuscular Hemoglobin 32.1 pg (27.0-31.0); Mean Platelet Volume 7.6 fL (7.4-10.4); Platelet Count 229 10x3/uL (130-400); RBC Distribution Width 11.5 % (11.5-14.5); Red Blood Cell (RBC) Count 4.12 mill/uL (4.70-6.10); White Blood Cell (WBC) Count 12.4 10x3/uL (4.8-10.8)
[2023-01-20 16:32] LABS: ALT (SGPT) 9 U/L (8-55); AST (SGOT) 9 U/L (5-34); Albumin 3.4 g/dL (3.5-5.0); Alkaline Phosphatase 63 U/L (40-110); Anion Gap 11 mmol/L (10-20); BUN (Urea Nitrogen) 12 mg/dL (8.9-20.6); Calc. Creatinine Clearance 0 mL/min (70-130); Calcium 8.9 mg/dL (7.8-10.44); Carbon Dioxide 25 mmol/L (22-29); Chloride 101 mmol/L (98-107); Estimated GFR 95; Globulin 3.3 g/dL (2.4-3.5); Glucose 227 mg/dL (70-105); Potassium 3.7 mmol/L (3.5-5.1); Protein, Total 6.7 g/dL (6.0-8.3); Sodium 133 mmol/L (136-145)
[2023-01-20 16:33] LABS: Band 1 % (5-11); Lymphocytes 14 % (21-51); MDiff Complete? YES; Monocytes 9 % (0-10); Neutrophil 75 % (42-75); Platelet Morphology Comment Appears Adequate; Polychromasia SLIGHT = 2-3 cells (100X) (0-2/hpf); Reactive Lymphocytes 1 % (0-10)
[2023-01-20 16:44] LABS: INR-International Normal Ratio 1.1; PTT 31.2 sec (22.9-36.1)
[2023-01-20 17:04] LABS: SARS-CoV-2 NAA Rapid Test Not Detected (NotDetected)
[2023-01-20] MEDS ORDERED: Morphine 4 MG/ML VIAL ONE (18:01)
[2023-01-20] MEDS ORDERED: Dextrose 50% Abboject 50 ML SYRINGE SLOW IVP PRN (18:34)
[2023-01-20] MEDS ORDERED: Dextrose 5% in Water 1,000 ML IV PRN (18:34)
[2023-01-20] MEDS ORDERED: HumaLOG 300 UNITS/3 ML VIAL SC PRN (18:39)
[2023-01-20] MEDS ORDERED: Ondansetron PF 4 MG/2 ML Vial IVP PRN (18:39)
[2023-01-20 19:34] VITALS: BMI 34.7
[2023-01-20 20:04] LABS: Magnesium 1.6 mg/dL (1.6-2.6)
[2023-01-20] MEDS: Famotidine/PF 20 mg/2ml Vial SLOW IVP SCH (21:00)
[2023-01-20] MEDS: Apixaban 5 MG TAB PO SCH (21:01)
[2023-01-20] MEDS: Famotidine 20 MG TAB PO SCH (21:02)
[2023-01-20] MEDS: HYDROcodone/Acetaminophen 5/325 mg Tablet PO PRN (21:20)
[2023-01-20] MEDS: VANCOMYCIN 1.75 GM/500 ML BAG 1.75 GM in Premix Bag 1 BAG IVPB SCH (23:51)
[2023-01-20] MEDS: Ondansetron ODT 4 MG TAB PO PRN (23:51)
[2023-01-21 00:19] LABS: Troponin I Less than 0.010 ng/mL (< 0.028)
[2023-01-21 03:03] LABS: Anion Gap 10 mmol/L (10-20); BUN (Urea Nitrogen) 10 mg/dL (8.9-20.6); Calc. Creatinine Clearance 174 mL/min (70-130); Carbon Dioxide 24 mmol/L (22-29); Chloride 103 mmol/L (98-107); Potassium 3.6 mmol/L (3.5-5.1); Sodium 133 mmol/L (136-145)
[2023-01-21 03:04] LABS: Calcium 8.5 mg/dL (7.8-10.44); Estimated GFR 107; Glucose 227 mg/dL (70-105)
[2023-01-21 03:06] LABS: #Eosinphils 0.1 thou/uL (0.0-0.7); #Lymphocytes 1.8 thou/uL (1.20-3.40); #Monocytes 1.2 thou/uL (0.11-0.59); #Neutrophils 9.4 thou/uL (1.40-6.50); %Basophils 0.2 % (0.0-1.0); %Eosinophils 0.5 % (0.0-10.0); %Lymphocytes 14.2 % (21.0-51.0); %Monocytes 9.2 % (0.0-10.0); %Neutrophils 75.8 % (42.0-75.0); Mean Corpuscular HGB CONC 33.1 g/dL (32.0-36.0); Mean Corpuscular Hemoglobin 30.9 pg (27.0-31.0); Mean Corpuscular Volume 93.2 fl (78.0-98.0); Mean Platelet Volume 7.5 fL (7.4-10.4); Platelet Count 217 10x3/uL (130-400); RBC Distribution Width 11.4 % (11.5-14.5); White Blood Cell (WBC) Count 12.4 10x3/uL (4.8-10.8)
[2023-01-21 03:13] LABS: Troponin I Less than 0.010 ng/mL (< 0.028)
[2023-01-21] MEDS: HYDROcodone/Acetaminophen 5/325 mg Tablet PO PRN ×2 (03:22→09:08)
[2023-01-21] MEDS: Cefepime 2 GM in Sodium Chloride 0.9% 100 ML IVPB SCH ×2 (03:23→16:41)
[2023-01-21] MEDS: HumaLOG 300 UNITS/3 ML VIAL SC PRN ×2 (06:50→12:18)
[2023-01-21] MEDS: VANCOMYCIN 1.75 GM/500 ML BAG 1.75 GM in Premix Bag 1 BAG IVPB SCH ×2 (08:00→18:25)
[2023-01-21] MEDS: Famotidine 20 MG TAB PO SCH ×2 (09:08→20:31)
[2023-01-21] MEDS: Apixaban 5 MG TAB PO SCH ×2 (09:08→20:31)
[2023-01-21] MEDS: Famotidine/PF 20 mg/2ml Vial SLOW IVP SCH ×2 (09:12→20:27)
[2023-01-21] MEDS: Ondansetron ODT 4 MG TAB PO PRN (13:52)
[2023-01-21] MEDS: traMADol HCl 50 MG TAB PO PRN ×2 (13:54→22:57)
[2023-01-21 16:40] LABS: Vancomycin, Trough 16.9 ug/mL
[2023-01-21] MEDS: Acetaminophen 325 MG TAB PO PRN ×2 (16:56→22:56)
[2023-01-21] MEDS ORDERED: Polyethylene Glycol 3350 17 GM Packet PO SCH (20:15)
[2023-01-21] MEDS ORDERED: HumaLOG 300 UNITS/3 ML VIAL SC SCH (21:00)
[2023-01-22] MEDS: VANCOMYCIN 1.75 GM/500 ML BAG 1.75 GM in Premix Bag 1 BAG IVPB SCH ×3 (00:02→18:14)
[2023-01-22] MEDS: Cefepime 2 GM in Sodium Chloride 0.9% 100 ML IVPB SCH ×2 (04:29→16:24)
[2023-01-22 05:04] LABS: #Eosinphils 0.1 thou/uL (0.0-0.7); #Lymphocytes 2.3 thou/uL (1.20-3.40); #Monocytes 0.8 thou/uL (0.11-0.59); #Neutrophils 6.5 thou/uL (1.40-6.50); %Basophils 0.2 % (0.0-1.0); %Eosinophils 1.5 % (0.0-10.0); %Lymphocytes 23.7 % (21.0-51.0); %Monocytes 7.8 % (0.0-10.0); %Neutrophils 66.8 % (42.0-75.0); Hemoglobin 11.7 g/dL (14.0-18.0); Mean Corpuscular HGB CONC 33.5 g/dL (32.0-36.0); Mean Corpuscular Hemoglobin 31.2 pg (27.0-31.0); Mean Corpuscular Volume 93.4 fl (78.0-98.0); Mean Platelet Volume 7.6 fL (7.4-10.4); Platelet Count 209 10x3/uL (130-400); RBC Distribution Width 11.4 % (11.5-14.5); Red Blood Cell (RBC) Count 3.74 mill/uL (4.70-6.10); White Blood Cell (WBC) Count 9.8 10x3/uL (4.8-10.8)
[2023-01-22 05:30] LABS: Anion Gap 8 mmol/L (10-20); BUN (Urea Nitrogen) 9 mg/dL (8.9-20.6); Calc. Creatinine Clearance 190 mL/min (70-130); Calcium 8.5 mg/dL (7.8-10.44); Carbon Dioxide 27 mmol/L (22-29); Chloride 105 mmol/L (98-107); Estimated GFR 110; Glucose 186 mg/dL (70-105); Potassium 3.7 mmol/L (3.5-5.1); Sodium 136 mmol/L (136-145)
[2023-01-22] MEDS: Amlodipine 5 MG TAB PO SCH (09:28)
[2023-01-22] MEDS: Aspirin 81 mg Enteric Coated Tablet PO SCH (09:30)
[2023-01-22] MEDS: Famotidine/PF 20 mg/2ml Vial SLOW IVP SCH ×2 (09:30→22:57)
[2023-01-22] MEDS: Lisinopril 20 MG TAB PO SCH (09:30)
[2023-01-22] MEDS: Famotidine 20 MG TAB PO SCH ×2 (09:31→22:56)
[2023-01-22] MEDS: Rosuvastatin 10 MG TAB PO SCH (09:31)
[2023-01-22] MEDS: Enoxaparin 120 MG/0.8 ML SYRINGE SC SCH ×2 (09:36→22:57)
[2023-01-22] MEDS: Acetaminophen 325 MG TAB PO PRN ×2 (14:30→18:30)
[2023-01-22 16:15] LABS: Vancomycin, Trough 18.6 ug/mL
[2023-01-22] MEDS: Insulin Glargine 30 UNITS/0.3 ML VIAL SC SCH (22:57)
[2023-01-23] MEDS: VANCOMYCIN 1.75 GM/500 ML BAG 1.75 GM in Premix Bag 1 BAG IVPB SCH ×2 (01:28→09:34)
[2023-01-23] MEDS: Acetaminophen 325 MG TAB PO PRN ×2 (01:28→23:51)
[2023-01-23] MEDS: Cefepime 2 GM in Sodium Chloride 0.9% 100 ML IVPB SCH ×2 (03:43→16:40)
[2023-01-23 05:09] LABS: #Eosinphils 0.2 thou/uL (0.0-0.7); #Lymphocytes 2.2 thou/uL (1.20-3.40); #Monocytes 0.5 thou/uL (0.11-0.59); #Neutrophils 3.9 thou/uL (1.40-6.50); %Basophils 0.3 % (0.0-1.0); %Eosinophils 2.9 % (0.0-10.0); %Monocytes 7.9 % (0.0-10.0); %Neutrophils 56.9 % (42.0-75.0); Hemoglobin 11.7 g/dL (14.0-18.0); Mean Corpuscular HGB CONC 32.8 g/dL (32.0-36.0); Mean Corpuscular Volume 94.5 fl (78.0-98.0); Mean Platelet Volume 8.3 fL (7.4-10.4); Platelet Count 210 10x3/uL (130-400); RBC Distribution Width 11.5 % (11.5-14.5); Red Blood Cell (RBC) Count 3.79 mill/uL (4.70-6.10); White Blood Cell (WBC) Count 6.9 10x3/uL (4.8-10.8)
[2023-01-23 05:34] LABS: Anion Gap 8 mmol/L (10-20); BUN (Urea Nitrogen) 8 mg/dL (8.9-20.6); Calc. Creatinine Clearance 187 mL/min (70-130); Calcium 8.2 mg/dL (7.8-10.44); Carbon Dioxide 23 mmol/L (22-29); Chloride 108 mmol/L (98-107); Estimated GFR 110; Glucose 252 mg/dL (70-105); Magnesium 1.9 mg/dL (1.6-2.6); Potassium 4.1 mmol/L (3.5-5.1); Sodium 135 mmol/L (136-145)
[2023-01-23] MEDS: HumaLOG 300 UNITS/3 ML VIAL SC PRN (07:37)
[2023-01-23] MEDS: Famotidine 20 MG TAB PO SCH ×3 (09:30→20:59)
[2023-01-23] MEDS: Amlodipine 5 MG TAB PO SCH (09:34)
[2023-01-23] MEDS: Aspirin 81 mg Enteric Coated Tablet PO SCH (09:34)
[2023-01-23] MEDS: Enoxaparin 120 MG/0.8 ML SYRINGE SC SCH ×2 (09:35→20:59)
[2023-01-23] MEDS: Lisinopril 20 MG TAB PO SCH (09:35)
[2023-01-23] MEDS: Rosuvastatin 10 MG TAB PO SCH (09:35)
[2023-01-23] MEDS: Famotidine/PF 20 mg/2ml Vial SLOW IVP SCH ×2 (10:46→21:01)
[2023-01-23] MEDS: traMADol HCl 50 MG TAB PO PRN (11:33)
[2023-01-23 15:03] LABS: Vancomycin, Trough 24.3 ug/mL
[2023-01-23] MEDS: Polyethylene Glycol 3350 17 GM Packet PO PRN (17:52)
[2023-01-23] MEDS: VANCOMYCIN 1.25 GM/250 ML BAG 1.25 GM in Premix Bag 1 BAG IVPB SCH ×2 (17:52→23:53)
[2023-01-23] MEDS: Gabapentin 300 MG CAP PO SCH (20:58)
[2023-01-23] MEDS: Insulin Glargine 30 UNITS/0.3 ML VIAL SC SCH (21:00)
[2023-01-24] MEDS: Cefepime 2 GM in Sodium Chloride 0.9% 100 ML IVPB SCH ×2 (04:05→15:05)
[2023-01-24 05:49] LABS: #Eosinphils 0.2 thou/uL (0.0-0.7); #Lymphocytes 2.3 thou/uL (1.20-3.40); #Monocytes 0.5 thou/uL (0.11-0.59); #Neutrophils 2.5 thou/uL (1.40-6.50); %Basophils 0.4 % (0.0-1.0); %Eosinophils 3.3 % (0.0-10.0); %Lymphocytes 41.5 % (21.0-51.0); %Monocytes 8.6 % (0.0-10.0); %Neutrophils 46.2 % (42.0-75.0); Mean Corpuscular HGB CONC 33.6 g/dL (32.0-36.0); Mean Corpuscular Hemoglobin 31.2 pg (27.0-31.0); Mean Corpuscular Volume 92.9 fl (78.0-98.0); Mean Platelet Volume 7.3 fL (7.4-10.4); Platelet Count 261 10x3/uL (130-400); RBC Distribution Width 11.3 % (11.5-14.5); Red Blood Cell (RBC) Count 3.86 mill/uL (4.70-6.10); White Blood Cell (WBC) Count 5.5 10x3/uL (4.8-10.8)
[2023-01-24 06:07] LABS: Anion Gap 11 mmol/L (10-20); BUN (Urea Nitrogen) 6 mg/dL (8.9-20.6); Calc. Creatinine Clearance 197 mL/min (70-130); Calcium 8.4 mg/dL (7.8-10.44); Carbon Dioxide 21 mmol/L (22-29); Chloride 107 mmol/L (98-107); Estimated GFR 112; Glucose 187 mg/dL (70-105); Magnesium 1.8 mg/dL (1.6-2.6); Potassium 3.7 mmol/L (3.5-5.1); Sodium 135 mmol/L (136-145)
[2023-01-24] MEDS: Amlodipine 5 MG TAB PO SCH (09:52)
[2023-01-24] MEDS: VANCOMYCIN 1.25 GM/250 ML BAG 1.25 GM in Premix Bag 1 BAG IVPB SCH (09:52)
[2023-01-24] MEDS: Aspirin 81 mg Enteric Coated Tablet PO SCH (09:52)
[2023-01-24] MEDS: Enoxaparin 120 MG/0.8 ML SYRINGE SC SCH ×2 (09:53→21:43)
[2023-01-24] MEDS: Famotidine 20 MG TAB PO SCH ×2 (09:53→21:42)
[2023-01-24] MEDS: Gabapentin 300 MG CAP PO SCH ×2 (09:54→21:42)
[2023-01-24] MEDS: Famotidine/PF 20 mg/2ml Vial SLOW IVP SCH ×2 (09:54→21:42)
[2023-01-24] MEDS: Lisinopril 20 MG TAB PO SCH (09:57)
[2023-01-24] MEDS: Rosuvastatin 10 MG TAB PO SCH (09:58)
[2023-01-24] MEDS: Acetaminophen 325 MG TAB PO PRN ×2 (09:58→15:01)
[2023-01-24] MEDS ORDERED: Bisacodyl 10 MG SUPP PR PRN (13:29)
[2023-01-24] MEDS: Polyethylene Glycol 3350 17 GM Packet PO PRN (14:54)
[2023-01-24] MEDS: HumaLOG 300 UNITS/3 ML VIAL SC PRN ×2 (14:57→18:47)
[2023-01-24 15:09] LABS: Vancomycin, Trough 17.3 ug/mL
[2023-01-24] MEDS: Vancomycin 1.5 GRAM/300 ML BAG 1.5 GM in Premix Bag 1 BAG IVPB SCH ×2 (16:53→23:22)
[2023-01-24] MEDS: Insulin Glargine 30 UNITS/0.3 ML VIAL SC SCH (21:42)
[2023-01-24] MEDS: traMADol HCl 50 MG TAB PO PRN (21:46)
[2023-01-25] MEDS: Cefepime 2 GM in Sodium Chloride 0.9% 100 ML IVPB SCH ×2 (03:18→16:00)
[2023-01-25] MEDS: Acetaminophen 325 MG TAB PO PRN ×3 (03:18→19:53)
[2023-01-25 05:20] LABS: #Eosinphils 0.2 thou/uL (0.0-0.7); #Lymphocytes 2.2 thou/uL (1.20-3.40); #Monocytes 0.5 thou/uL (0.11-0.59); #Neutrophils 2.1 thou/uL (1.40-6.50); %Basophils 0.1 % (0.0-1.0); %Eosinophils 3.3 % (0.0-10.0); %Lymphocytes 44.8 % (21.0-51.0); %Neutrophils 41.8 % (42.0-75.0); Hemoglobin 12.1 g/dL (14.0-18.0); Mean Corpuscular HGB CONC 33.9 g/dL (32.0-36.0); Mean Corpuscular Hemoglobin 31.4 pg (27.0-31.0); Mean Corpuscular Volume 92.5 fl (78.0-98.0); Mean Platelet Volume 7.2 fL (7.4-10.4); Platelet Count 282 10x3/uL (130-400); RBC Distribution Width 11.3 % (11.5-14.5); Red Blood Cell (RBC) Count 3.87 mill/uL (4.70-6.10)
[2023-01-25 05:47] LABS: Anion Gap 12 mmol/L (10-20); BUN (Urea Nitrogen) 8 mg/dL (8.9-20.6); Calc. Creatinine Clearance 208 mL/min (70-130); Calcium 8.8 mg/dL (7.8-10.44); Carbon Dioxide 24 mmol/L (22-29); Chloride 107 mmol/L (98-107); Estimated GFR 113; Glucose 126 mg/dL (70-105); Potassium 3.9 mmol/L (3.5-5.1); Sodium 139 mmol/L (136-145)
[2023-01-25] MEDS: Enoxaparin 120 MG/0.8 ML SYRINGE SC SCH ×2 (08:47→19:51)
[2023-01-25] MEDS: Vancomycin 1.5 GRAM/300 ML BAG 1.5 GM in Premix Bag 1 BAG IVPB SCH ×3 (08:47→19:54)
[2023-01-25] MEDS: Amlodipine 5 MG TAB PO SCH (08:47)
[2023-01-25] MEDS: Aspirin 81 mg Enteric Coated Tablet PO SCH (08:47)
[2023-01-25] MEDS: Famotidine 20 MG TAB PO SCH ×2 (08:47→19:54)
[2023-01-25] MEDS: Lisinopril 20 MG TAB PO SCH (08:48)
[2023-01-25] MEDS: Gabapentin 300 MG CAP PO SCH ×2 (08:48→19:54)
[2023-01-25] MEDS: Rosuvastatin 10 MG TAB PO SCH (08:48)
[2023-01-25] MEDS: Famotidine/PF 20 mg/2ml Vial SLOW IVP SCH ×2 (08:50→19:55)
[2023-01-25] MEDS: traMADol HCl 50 MG TAB PO PRN (16:00)
[2023-01-25 18:38] LABS: Vancomycin, Trough 17.7 ug/mL
[2023-01-25] MEDS: Polyethylene Glycol 3350 17 GM Packet PO PRN (19:54)
[2023-01-25] MEDS: Insulin Glargine 30 UNITS/0.3 ML VIAL SC SCH (19:55)
[2023-01-26] MEDS: Vancomycin 1.5 GRAM/300 ML BAG 1.5 GM in Premix Bag 1 BAG IVPB SCH ×2 (02:48→13:34)
[2023-01-26] MEDS: Cefepime 2 GM in Sodium Chloride 0.9% 100 ML IVPB SCH (04:31)
[2023-01-26 04:55] LABS: Hemoglobin 12.6 g/dL (14.0-18.0); Mean Corpuscular HGB CONC 33.2 g/dL (32.0-36.0); Mean Corpuscular Volume 93.5 fl (78.0-98.0); Mean Platelet Volume 7.1 fL (7.4-10.4); Platelet Count 271 10x3/uL (130-400); RBC Distribution Width 11.6 % (11.5-14.5); Red Blood Cell (RBC) Count 4.06 mill/uL (4.70-6.10); White Blood Cell (WBC) Count 5.6 10x3/uL (4.8-10.8)
[2023-01-26 05:15] LABS: Anion Gap 10 mmol/L (10-20); BUN (Urea Nitrogen) 8 mg/dL (8.9-20.6); Calc. Creatinine Clearance 187 mL/min (70-130); Calcium 8.6 mg/dL (7.8-10.44); Carbon Dioxide 27 mmol/L (22-29); Chloride 106 mmol/L (98-107); Estimated GFR 110; Glucose 185 mg/dL (70-105); Magnesium 1.9 mg/dL (1.6-2.6); Potassium 3.8 mmol/L (3.5-5.1); Sodium 139 mmol/L (136-145)
[2023-01-26 05:26] LABS: Band 1 % (5-11); Eosinophils 2 % (0-10); Lymphocytes 53 % (21-51); MDiff Complete? YES; Monocytes 4 % (0-10); Neutrophil 40 % (42-75)
[2023-01-26] MEDS ORDERED: Amlodipine 10 MG TAB PO SCH (09:00)
[2023-01-26] MEDS: Famotidine 20 MG TAB PO SCH (09:46)
[2023-01-26] MEDS: Rosuvastatin 10 MG TAB PO SCH (09:46)
[2023-01-26] MEDS: Gabapentin 300 MG CAP PO SCH (09:46)
[2023-01-26] MEDS: Enoxaparin 120 MG/0.8 ML SYRINGE SC SCH (09:46)
[2023-01-26] MEDS: Aspirin 81 mg Enteric Coated Tablet PO SCH (09:46)
[2023-01-26] MEDS: Lisinopril 20 MG TAB PO SCH (09:46)
[2023-01-26] MEDS: Famotidine/PF 20 mg/2ml Vial SLOW IVP SCH (09:52)
[2023-01-26] MEDS: Polyethylene Glycol 3350 17 GM Packet PO PRN (10:56)
[2023-01-26] MEDS: traMADol HCl 50 MG TAB PO PRN (10:56)
[2023-01-26 12:51] VITALS: BP 170/92; TEMP 97.7
== END 2023-01-26 17:05 | disposition home or self-care (01) | DRG 638 ==
LOC: ERS 15:36 → ERHOLD 17:54 → 2SW 19:41
PROVIDERS: ADMIT Hospitalist; ATTEND Internal Medicine
PROC: 0J9Q3ZZ Drainage of Right Foot Subcutaneous Tissue and Fascia, Percutaneous Approach (ICD-10-PCS; principal; 2023-01-25)
DX: E11.628 Type 2 diabetes mellitus with other skin complications (principal); L03.115 Cellulitis of right lower limb; I82.412 Acute embolism and thrombosis of left femoral vein; Z20.822 Contact with and (suspected) exposure to COVID-19; J45.909 Unspecified asthma, uncomplicated; I10 Essential (primary) hypertension; E78.00 Pure hypercholesterolemia, unspecified; K21.9 Gastro-esophageal reflux disease without esophagitis; F41.9 Anxiety disorder, unspecified; E66.9 Obesity, unspecified; E11.40 Type 2 diabetes mellitus with diabetic neuropathy, unspecified; Z87.891 Personal history of nicotine dependence; Z88.5 Allergy status to narcotic agent; Z79.51 Long term (current) use of inhaled steroids; Z79.899 Other long term (current) drug therapy; Z68.34 Body mass index [BMI] 34.0-34.9, adult; Z79.84 Long term (current) use of oral hypoglycemic drugs; Z79.4 Long term (current) use of insulin; Z79.82 Long term (current) use of aspirin; Z79.01 Long term (current) use of anticoagulants
CPT/HCPCS: 36415; 36416; 71045; 71275; 80048; 80053; 80202; 83605; 83735; 83880; 84145; 84484; 85025; 85379; 85610; 85730; 87040; 87070; 87205; 93005; 93306; 93923; 93970; 96365; 96367; 96375; 97139; J0692; J1650; J1815; J2270; J3370; J3490; J7030; Q0162